=== PATIENT | male | born 1945 | race Hispanic/Latino ===

== ENCOUNTER 2018-04-29 13:59 | Emergency (ER) | payer OTHER ==
[2018-04-29] MEDS ORDERED: BUPIVACAINE 0.5% PF 10 ML VIAL ONE (14:24)
--- NOTE | 2018-04-29 15:13 | EDPHYS ---
Physician Documentation [facility] Name: Efren Bullock Age: 72 yrs Sex: Male : 1945 Arrival Date: 04/29/2018 Time: 14:02 Bed 12 Private MD: Jose Gerber ED Physician Hamzah Melendez HPI: 04/29 14:18 This 72 yrs old Male presents to ER via Ambulatory with complaints of jmm Laceration - Finger. 14:18 The patient or guardian reports injury, a laceration. Onset: The symptoms/episode jmm began/occurred acutely. Modifying factors: The symptoms are alleviated by nothing, the symptoms are aggravated by nothing. Associated signs and symptoms: Pertinent negatives: cyanosis distally, fever. This is a 72 year old male with a history of DM that presents to the ED with complaints of laceration to the tip of his right 4th finger with a machete while he was cleaning it. Patient denies other injury. UTD on tetanus immunization. . Historical: - Allergies: 14:09 No Known Allergies; sv - PSHx: 14:09 kidney cancer; Cholecystectomy; sv - Immunization history:: Flu vaccine is up to date. - Social history:: Smoking status: Patient/guardian denies using tobacco. - Ebola Screening: : No symptoms or risks identified at this time. ROS: 14:18 Constitutional: Negative for fever, chills, and weight loss. jmm 14:18 : Positive for laceration. 14:18 MS/extremity: Positive for laceration. 14:18 Skin: Positive for laceration(s). 14:18 All other systems are negative. Exam: 14:18 Constitutional: This is a well developed, well nourished patient who is awake, alert, jmm and in no acute distress. Head/Face: atraumatic. Eyes: EOMI, no conjunctival erythema appreciated ENT: Moist Mucus Membranes Neck: Trachea midline, Supple Chest/axilla: Normal chest wall appearance and motion. Cardiovascular: Regular rate and rhythm. No edema appreciated Respiratory: Normal respirations, no respiratory distress appreciated Abdomen/GI: Non distended, soft Back: Normal ROM 14:18 Musculoskeletal/extremity: FROM noted to the right finger against resistance. < 2 sec dist cap refill, NVI. 14:18 Skin: partial depadding noted to the right 4th finger tip. 14:18 Neuro: Orientation: is normal, Mentation: is normal, Memory: is normal, Gait: is steady. 14:18 Psych: Behavior/mood is pleasant, cooperative. Vital Signs: 14:09 BP 158 / 91; Pulse 75; Resp 16; Temp 98.8; Pulse Ox 99% ; Weight 77.11 kg; Height 5 ft. sv 10 in. (177.80 cm); 14:09 Body Mass Index 24.39 (77.11 kg, 177.80 cm) sv Laceration: 15:20 Wound Repair of 3cm ( 1.2in ) subcutaneous laceration to palmar aspect of distal jmm phalanx of right ring finger. Distal neuro/vascular/tendon intact. Anesthesia: Digital block administered with 3 mls of 0.5% marcaine. Wound prep: Moderate cleansing with betadine by me. Skin closed with 6 5-0 Prolene using simple sutures and sterile technique. Dressed with non-adherent dressing. Patient tolerated well. MDM: 14:18 Patient medically screened. ange 15:11 Data reviewed: vital signs, nurses notes. Counseling: I had a detailed discussion with leonardo the patient and/or guardian regarding: the historical points, exam findings, and any diagnostic results supporting the discharge/admit diagnosis, the need for outpatient follow up, to return to the emergency department if symptoms worsen or persist or if there are any questions or concerns that arise at home. Administered Medications: No medications were administered Disposition: 04/29/18 15:12 Discharged to Home. Impression: finger laceration. - Condition is Stable. - Discharge Instructions: Laceration Care, Adult. - Prescriptions for Cephalexin 500 mg Oral Capsule - take 1 capsule by ORAL route every 6 hours for 10 days; 40 capsule. - Medication Reconciliation Form, Thank You Letter, Antibiotic Education, Prescription Opioid Use form. - Follow up: Alejadnro Benito MD; When: 2 - 3 days; Reason: Recheck today's complaints, Continuance of care, Re-evaluation by your physician. Addendum: 05/01/2018 13:27 Co-signature as Attending Physician, Hamzah Melendez MD I agree with the assessment and k dr plan of care. Signatures: Celina Friedman RN RN sv Rittger, Kevin, MD MD kdr Mickail, Joel, PA PA jm Torie Cummings, RN RN Zully Olivares RN RN kr2 Corrections: (The following items were deleted from the chart) 04/29 15:25 15:12 04/29/2018 15:12 Discharged to Home. Impression: finger laceration. Condition is hb Stable. Forms are Medication Reconciliation Form, Thank You Letter, Antibiotic Education, Prescription Opioid Use. Follow up: Alejandro Benito; When: 2 - 3 days; Reason: Recheck today's complaints, Continuance of care, Re-evaluation by your physician. [facility] [place] 22:12 22:09 Wound Repair of 3cm ( 1.2in ) subcutaneous laceration to palmar aspect of distal jmm phalanx of right ring finger. Distal neuro/vascular/tendon intact. Anesthesia: Digital block administered with 3 mls of 0.5% marcaine. Wound prep: Moderate cleansing with betadine by me. Skin closed with 6 5-0 Prolene using simple sutures and sterile technique. Dressed with non-adherent dressing. Patient tolerated well. leonardo
--- NOTE | 2018-04-29 15:13 | ER ---
Nurse's Notes [facility] Name: Efren Bullock Age: 72 yrs Sex: Male : 1945 Arrival Date: 04/29/2018 Time: 14:02 Bed 12 Private MD: Jose Gerber Diagnosis: finger laceration Presentation: 04/29 14:08 Presenting complaint: Patient states: right 4th digit laceration that happened today. sv Transition of care: patient was not received from another setting of care. Complicating Factors: There are no complicating factors for this patient. Onset of symptoms was April 29, 2018. Care prior to arrival: None. 14:08 Method Of Arrival: Ambulatory sv 14:08 Acuity: AMARJIT 3 sv 14:50 Risk Assessment: Do you want to hurt yourself or someone else? Patient reports no kr2 desire to harm self or others. Initial Sepsis Screen: Does the patient meet any 2 criteria? No. Patient's initial sepsis screen is negative. Does the patient have a suspected source of infection? Yes: Skin breakdown/wound. Historical: - Allergies: 14:09 No Known Allergies; sv - PSHx: 14:09 kidney cancer; Cholecystectomy; sv - Immunization history:: Flu vaccine is up to date. - Social history:: Smoking status: Patient/guardian denies using tobacco. - Ebola Screening: : No symptoms or risks identified at this time. Screenin:50 Abuse screen: Denies threats or abuse. Denies injuries from another. Nutritional kr2 screening: No deficits noted. Tuberculosis screening: No symptoms or risk factors identified. Fall Risk None identified. Assessment: 14:15 General: Appears in no apparent distress. uncomfortable, well groomed, well developed, kr2 Behavior is calm, cooperative, appropriate for age. Pain: Complains of pain in ring finger of right hand Pain does not radiate. Pain currently is 5 out of 10 on a pain scale. Quality of pain is described as burning, aching, tender, Is continuous. Neuro: Level of Consciousness is awake, alert, obeys commands, Oriented to person, place, time, situation. Cardiovascular: Capillary refill < 3 seconds in bilateral fingers Patient's skin is warm and dry. Respiratory: Airway is patent Respiratory effort is even, unlabored, Respiratory pattern is regular, symmetrical. Derm: Skin is healthy with good turgor. Musculoskeletal: Circulation, motion, and sensation intact. Injury Description: Laceration sustained to ring finger of right hand is covered with bandage, per provider Partha, he will administer Marcaine to affected finger before removing dressing. 14:57 Injury Description: Laceration sustained to palmar aspect of distal phalanx of right kr2 ring finger was sustained 2-4 hours ago. is bleeding a small amount. Vital Signs: 14:09 BP 158 / 91; Pulse 75; Resp 16; Temp 98.8; Pulse Ox 99% ; Weight 77.11 kg; Height 5 ft. sv 10 in. (177.80 cm); 14:09 Body Mass Index 24.39 (77.11 kg, 177.80 cm) sv ED Course: 14:02 Patient arrived in ED. as 14:03 Jose Gerber MD is Private Physician. as 14:08 Triage completed. sv 14:11 [facility] 14:11 Hamzah Melendez MD is Attending Physician. [facility] 14:15 Arm band placed on left wrist. kr2 14:15 Patient has correct armband on for positive identification. Bed in low position. Call kr2 light in reach. Side rails up X 1. Adult w/ patient. Pulse ox on. NIBP on. Door closed. Head of bed elevated. 15:12 Alejandro Benito MD is Referral Physician. [facility] 15:24 Assist provider with laceration repair on palmar aspect of distal phalanx of right ring hb finger that was between 2.6 to 7.5 cm using sutures. Set up tray. Performed by Hima PLAZA Patient tolerated well. 15:25 Patient did not have IV access during this emergency room visit. hb Administered Medications: No medications were administered Outcome: 15:12 Discharge ordered by . [facility] 15:24 Discharged to home ambulatory. hb 15:24 Condition: stable 15:24 Discharge instructions given to patient, family, Instructed on discharge instructions, follow up and referral plans. medication usage, Demonstrated understanding of instructions, follow-up care, medications, wound care, Prescriptions given X 1. 15:25 Patient left the ED. hb Signatures: Celina Friedman RN RN Hima Coleman PA PA jmm Martinez, Amelia as Baxter, Heather, RN RN hb Zully Olivares, RN RN kr2
== END 2018-04-29 15:25 | disposition home or self-care (01) ==
LOC: ER 13:59
PROC: 0JQJ0ZZ Repair Right Hand Subcutaneous Tissue and Fascia, Open Approach (ICD-10-PCS; principal; 2018-04-29)
DX: S61.214A Laceration without foreign body of right ring finger without damage to nail, initial encounter (principal); W26.0XXA Contact with knife, initial encounter; Y93.89 Activity, other specified; Y92.009 Unspecified place in unspecified non-institutional (private) residence as the place of occurrence of the external cause; Z85.528 Personal history of other malignant neoplasm of kidney
CPT/HCPCS: 99283

== ENCOUNTER 2018-05-04 07:58 | Day surgery (SDC) | payer OTHER ==
--- NOTE | 2018-05-03 17:09 | RAD REPORT ---
EXAM DESCRIPTION: RAD - Chest Pa And Lat (2 Views) - 05/03/2018 4:48 pm CLINICAL HISTORY: Preop chest, skin graft right second digit pending COMPARISON: November 2008 TECHNIQUE: PA and lateral views of the chest were obtained. FINDINGS: The lungs are clear. Mediastinal and hilar regions within normal limits and stable. Heart size is normal and central vasculature is within normal limits. No pleural effusion or pneumothorax seen. No acute bony finding noted. No aortic abnormality. IMPRESSION: No acute cardiopulmonary process. No significant interval change.
[2018-05-03 17:25] LABS: Urine Appearance CLEAR; Urine Bilirubin NEGATIVE (NEG); Urine Blood NEGATIVE (NEG); Urine Color YELLOW; Urine Glucose 3+ (NEG); Urine Protein NEGATIVE (NEG); Urine Urobilinogen 0.2 mg/dL (0.2-1.0); Urine pH 5.5 (5.0-7.0)
[2018-05-03 17:27] LABS: Urine Microscopic Reflex NO UMIC
[2018-05-03 17:29] LABS: Absolute Lymphocytes (CBC) 1.6 K/uL (0.7-4.9); Absolute Monocytes 0.6 K/uL (0.1-1.3); Absolute Neutrophil 4.1 K/uL (1.8-8.0); Hematocrit 38.9 % (39.6-49.0); Lymphocytes % 24.2 % (15.3-44.8); MCH 29.7 pg (27.0-35.0); MCV 88.1 fL (80-100); MPV 9.5 fL (7.6-11.3); Monocytes % 8.6 % (3.3-12.3); RBC Red Blood Cell Count 4.41 M/uL (4.33-5.43)
--- NOTE | 2018-05-03 19:37 | EKG ---
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
[2018-05-04] MEDS ORDERED: NA CHLORIDE 0.9% 1,000 ML ONE (08:25)
[2018-05-04] MEDS ORDERED: CEFAZOLIN/SWI 1gm 1 GM/10 ML SYR ONE (08:25)
[2018-05-04] MEDS ORDERED: MINERAL OIL, LITE 10 ML VIAL ONE (08:36)
[2018-05-04] MEDS ORDERED: PROPOFOL 200 MG/20 ML VIAL IV ONE (08:47)
[2018-05-04] MEDS ORDERED: FENTANYL CITR 100 MCG/2 ML ONE (08:47)
[2018-05-04] MEDS ORDERED: MIDAZOLAM HCL 2 MG/2 ML INJ ONE (08:48)
[2018-05-04] MEDS ORDERED: LIDOCAINE 2% MPF 5 ML VIAL ONE (08:48)
[2018-05-04] MEDS ORDERED: ONDANSETRON HCL 40 MG/20 ML VIAL ONE (08:48)
[2018-05-04] MEDS ORDERED: ROCURONIUM 50 MG/5 ML VIAL IV ONE (09:15)
[2018-05-04] MEDS ORDERED: GLYCOPYRROLATE 0.2 MG/ML SYR ONE ×2 (09:46)
--- NOTE | 2018-05-05 09:10 | OP ---
Surgeon: Alejandro Benito MD Manufacturing Plant Manager: Sharath. Preoperative Diagnosis: Open wound of the right ring finger. Postoperative Diagnosis: Open wound of the right ring finger. Procedure Performed: Debridement of skin and subcutaneous tissue, V-Y flap closure. Anesthesia: General. Procedure In Detail: After satisfactory induction of general anesthesia, right hand was prepped with Betadine scrub, Betadine paint, dry sterile drapes applied in usual manner. The arm was elevated, e xsanguinated with an Esmarch, tourniquet inflated to 250 mmHg. Hand placed on the [place] table. Diane tures removed. The closed area was necrosing and it was removed after sutures removed of Prolene. V -Y flap was outlined proximally. This was done on the ulnar aspect and incised with 15-blade. Flap was advanced. The wound was irrigated before advancing it, and was closed with 4-0 Prolene simple diane tures. Dressed with Xeroform, 2 inch Paula. The patient tolerated the procedure well and returned t o Recovery. SILVIO/LYNETTE Voice ID: [id number] Report ID: [id number]
== END 2018-05-04 11:10 | disposition home or self-care (01) ==
LOC: OR 07:58
PROVIDERS: ATTEND Specialist
PROC: 0HXFXZZ Transfer Right Hand Skin, External Approach (ICD-10-PCS; principal; 2018-05-04 09:00)
DX: S61.204A Unspecified open wound of right ring finger without damage to nail, initial encounter (principal); E11.9 Type 2 diabetes mellitus without complications; I10 Essential (primary) hypertension
CPT/HCPCS: 14040; 36415; 71046; 80048; 81003; 82962 ×2; 85025; 88304; 93005; J0690; J2250; J2405; J3010; J7030

== ENCOUNTER 2020-09-16 16:34 | Emergency (ER) | payer OTHER ==
--- OUTSIDE RECORDS SUMMARY | 2020-09-16 16:38 | XMS REPORT | Continuity of Care Document ---
:1945 Author Organization [facility] t Address [address] [place] [address] Care Team Providers Name Role Phone Magen De Leon MD Attending Clinician Payers Payer Name Policy Type Policy Number Effective Date Expiration Date S ori AETNA [id number] 2019 [place] MEDICAREAETNA 00:00:00 [facility] MEDICARE HMO/PPO [id number] 0-PresentHMO Problems This patient has no known problems. Allergies, Adverse Reactions, Alerts Allergy Allergy Status Severity Reaction(s) Onset Inactive Treating Comm ents Source Name Type Date Date Clinician No Known DA Active U [facility] 11-20 [place] [facility] 00:[facility]: [facility] 00 are [facility]ly [facility] Social History Social Habit Start Date Stop Date Quantity Comments Source Sex Assigned At Pravin ston [facility] Medications This patient has no known medications. Procedures Procedure Date / Time Performed Performing Clinician [facility] e SURGICAL PATHOLOGY 2019-10-07 16:17:00 Irineo De Leon on [facility] REQUEST Plan of Care Planned Activity Planned Date Details Comments Source Future Scheduled 2020-02-18 INFLUENZA VACCINE Raulito harrington [facility] Test 00:00:00 [code = INFLUENZA VACCINE] Future Scheduled 2011-11-20 65+ PNEUMOCOCCAL [place] [facility] 00:00:00 VACCINE (1 of 1 - PPSV23) [code = 65+ PNEUMOCOCCAL VACCINE (1 of 1 - PPSV23)] Future Scheduled 1996 COLONOSCOPY SCREENING [place] [facility] 00:00:00 [code = COLONOSCOPY SCREENING] Future Scheduled 1996 SHINGLES VACCINES (#1) [place] [facility] 00:00:00 [code = SHINGLES VACCINES (#1)] Future Scheduled 1964 Hepatitis C screening [place] [facility] 00:00:00 (procedure) [code = 359138380] Future Scheduled 1962 COVID-19 VACCINE (1 of [place] [facility] 00:00:00 2) [code = COVID-19 VACCINE (1 of 2)] Future Scheduled 1956 DIABETES: RETINAL EYE [place] [facility] 00:00:00 EXAM [code = DIABETES: RETINAL EYE EXAM] Future Scheduled 1956 DIABETIC FOOT EXAM [place] [facility] 00:00:00 [code = DIABETIC FOOT EXAM] Future Scheduled 1956 URINE MICROALBUMIN [place] [facility] 00:00:00 [code = URINE MICROALBUMIN] Encounters Start End Encounter Admission Attending Care Care Encounter Source Date/Time Date/Time Type Type Clinicians Facility Department ID 2019-10-07 2019-10-07 Outpatient IRINEO DE LEON [facility] [id number] [place] 00:00:00 00:00:[address] Results Test Description Test Time Test Comments Results Result [facility] e Comments SURGICAL SPECIMENS 2020-01-05 17:24:00 --------RUN DATE: 01/05/20 [facility] - LAB PAGE 1 RUN TIME: 6284 Specimen Inquiry RUN USER: INTERFACE --------PATIENT: ANA LUISA GOMEZ LOC: [place]anna5N POD B U #: [id number] AGE/SX: 74/M ROOM: [facility] RE01/03/20REG DR: Clark Daugherty MD : 47 BED: 1 DIS: 01/05/20 STATUS: DIS IN TLOC: -------- SPEC #: [id number] RECD: 01/03/20 STATUS: NENA REQ #: [id number] NATANAEL: 01/03/20-[address]: Clark Daugherty MD ENTERED: 01/03/20 SP TYPE: SURG OTHR DR: Irineo De Leon MD, Enrique A III MDORDERED: PATHGM5, PATH SPEC, H E STAIN HISTOLOGY: TISSUE ID BLK PCS LAINA LEV / PROCEDURE DISPOSITION ____ ___ ___ ___ ___ COLON SEG NTUMR A 16 1 TISSUES: A. 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 It consists of a right hemicolectomy and a separate segment of adipose tissue consistent with omentum (15.0 x 7.1 x 1.9 cm). The colon has the following components: ileum, 5.5 cm length, 3.5 cm circumference; cecum/ascending colon, 11 cm length, 8.8 cm maximum circumference; appendix, 9 cm length, 0.5 cm diameter. The colon serosa is warren-pink and smooth. Within the colon, at the ileocecal valve is a polyp (2.4 x 1.2 x 1.1 cm) which is at 5.2 cm from the proximal margin and 9.2 cm from distal margin. Involvement of underlying wall is not evident by gross exam. The remainder of ileum and colon mucosa is normally folded; there are no additional lesions. Dissection of adipose tissue reveals multiple possible lymph nodes which range from 0.2 to 1.0 cm in greatest dimension. Cross sections of adipose tissue consistent with omentum reveal unremarkable, lobulated adipose tissue with no mass lesions. Super[employer] sections, including all possible lymph nodes, are submitted in A1-A16. INK CODE: blue-serosa opposite polyp CONTINUED ON NEXT PAGE --------RUN DATE: 01/05/20 [facility] - LAB PAGE 2 RUN TIME: 1724 Specimen Inquiry RUN USER: INTERFACE --------SPEC #: [id number] PATIENT: ANA LUISA GOMEZ #[id number] (Continued) GROSS DESCRIPTION (Continued) SECTION CODE: A1, proximal margin en face; A2, distal margin en face; A3, appendix, including entire tip; A4-A8, entire polyp; A9, ileocecal valve adjacent to polyp; A10-A11, multiple entire possible lymph nodes in area of ileocecal valve; A12-A14, multiple entire possible lymph nodes, colon mesentery; A15-A16, omentum. / Signed SIGNATURE ON FILE Dwaine Estrada MD 01/05/20 1724 -------- END OF REPORT FERRITIN 2020-01-05 11:38:00 Test Item Value Reference Range Interpretation Comme nts FERRITIN (test code = ERWIN) 110 ng/mL 30-400 N [id number] 09:09:00 Test Item Value Reference Range Interpretation Comments GLUBED (test code = GLUBED) 228 MG/DL 70-105 H BASIC METABOLIC [id number] 07:29:00 Test Item Value Reference Range Interpretation Comments SODIUM (test code = 134 MMOL/L 136-143 L NA) POTASSIUM (test code 4.8 MMOL/L 3.5-5.1 N = K) CHLORIDE (test code = 102 MMOL/L 98-107 N CL) CARBON DIOXIDE (test 22 mmol/L 24-31 L code = CO2) GLUCOSE (test code = 161 mg/dL 70-104 H GLU) BLOOD UREA NITROGEN 14.7 MG/DL 7.0-21.0 N (test code = BUN) GLOMERULAR FILTRATION 53 >60 L The es timated RATE (test code = glomerular filtration GFR) rate is compute d usingpatient ra ce, age (>18), sex, and serum creatinine. If anyof the needed data elements are mi ssing the Laboratory cannot compute an dev mation of the glomerul ar filtration rate . CREATININE (test code 1.4 mg/dL 0.8-1.5 N = CREAT) CALCIUM (test code = 8.2 mg/dL 8.8-10.2 L CA) [id number] 07:29:00 Test Item Value Reference Range Interpretation Comments MAGNESIUM (test code = MAG) 1.9 mg/dL 1.4-2.6 N FE W/TOTAL IRON BINDING [id number] 06:56:00 Test Item Value Reference Range Interpretation Comments IRON (test code = IRON) 19 mcg/dL 53-167 L TOTAL IRON BINDING CAPACITY (test 273 mcg/dL 250-450 N code = TIBC) IRON SATURATION (test code = 7 % 20-50 L FESAT) CBC W/AUTO [id number] 06:32:00 Test Item Value Reference Range Interpretation Comments WHITE BLOOD CELL (test code = 8.1 x10 3/uL 4.8-10.8 N WBC) RED BLOOD CELL (test code = 3.52 x10 6/uL 4.70-6.10 L RBC) HEMOGLOBIN (test code = HGB) 10.0 g/dL 14.5-20 L HEMATOCRIT (test code = HCT) 31.8 % 42.0-52.0 L MEAN CELL VOLUME (test code = 90.3 fL 80.0-94.0 N MCV) MEAN CELL HGB (test code = MCH) 28.4 pg 27-31 N MEAN CELL HGB CONCENTRATION 31.4 G/DL 33-36.5 L (test code = MCHC) RED CELL DISTRIBUTION WIDTH 15.2 % 12.9-16.9 N (test code = RDW) PLATELET COUNT (test code = 209 150-440 N PLT) MEAN PLATELET VOLUME (test code 10.9 fL 8.9-12.4 N = MPV) NEUTROPHIL % (test code = NT%) 70.8 % 42.2-75.2 N LYMPHOCYTE % (test code = LY%) 15.2 % 20.5-51.1 L MONOCYTE % (test code = MO%) 9.4 % 1.7-9.3 H EOSINOPHIL % (test code = EO%) 4.0 % 0.0-7.0 N BASOPHIL % (test code = BA%) 0.4 % 0-2.5 N NEUTROPHIL # (test code = NT#) 5.71 x10 3/uL 1.80-7.70 N LYMPHOCYTE # (test code = LY#) 1.23 x10 3/uL 1.00-4.80 N MONOCYTE # (test code = MO#) 0.76 x10 3/uL 0.00-0.80 N EOSINOPHIL # (test code = EO#) 0.32 x10 3/uL 0.00-0.45 N BASOPHIL # (test code = BA#) 0.03 x10 3/uL 0.0-0.20 N [id number] 21:02:00 Test Item Value Reference Range Interpretation Comments GLUBED (test code = GLUBED) 184 MG/DL 70-105 H [id number] 16:42:00 Test Item Value Reference Range Interpretation Comments GLUBED (test code = GLUBED) 131 MG/DL 70-105 H [id number] 11:23:00 Test Item Value Reference Range Interpretation Comments GLUBED (test code = GLUBED) 148 MG/DL 70-105 H [id number] 08:11:00 Test Item Value Reference Range Interpretation Comments GLUBED (test code = GLUBED) 171 MG/DL 70-105 H BASIC METABOLIC [id number] 07:41:00 Test Item Value Reference Range Interpretation Comments SODIUM (test code = 133 MMOL/L 136-143 L NA) POTASSIUM (test code 4.5 MMOL/L 3.5-5.1 N = K) CHLORIDE (test code = 100 MMOL/L 98-107 N CL) CARBON DIOXIDE (test 24 mmol/L 24-31 N code = CO2) GLUCOSE (test code = 185 mg/dL 70-104 H GLU) BLOOD UREA NITROGEN 14.1 MG/DL 7.0-21.0 N (test code = BUN) GLOMERULAR FILTRATION 53 >60 L The es timated RATE (test code = glomerular filtration GFR) rate is compute d usingpatient ra ce, age (>18), sex, and serum creatinine. If anyof the needed data elements are mi ssing the Laboratory cannot compute an dev mation of the glomerul ar filtration rate . CREATININE (test code 1.4 mg/dL 0.8-1.5 N = CREAT) CALCIUM (test code = 8.5 mg/dL 8.8-10.2 L CA) [id number] 07:41:00 Test Item Value Reference Range Interpretation Comments MAGNESIUM (test code = MAG) 1.7 mg/dL 1.4-2.6 N CBC W/AUTO [id number] 07:07:00 Test Item Value Reference Range Interpretation Comments WHITE BLOOD CELL (test code = 12.6 x10 3/uL 4.8-10.8 H WBC) RED BLOOD CELL (test code = 3.82 x10 6/uL 4.70-6.10 L RBC) HEMOGLOBIN (test code = HGB) 10.9 g/dL 14.5-20 L HEMATOCRIT (test code = HCT) 33.8 % 42.0-52.0 L MEAN CELL VOLUME (test code = 88.5 fL 80.0-94.0 N MCV) MEAN CELL HGB (test code = 28.5 pg 27-31 N MCH) MEAN CELL HGB CONCENTRATION 32.2 G/DL 33-36.5 L (test code = MCHC) RED CELL DISTRIBUTION WIDTH 14.9 % 12.9-16.9 N (test code = RDW) PLATELET COUNT (test code = 214 150-440 N PLT) MEAN PLATELET VOLUME (test 11.0 fL 8.9-12.4 N code = MPV) NEUTROPHIL % (test code = NT%) 81.6 % 42.2-75.2 H LYMPHOCYTE % (test code = LY%) 10.7 % 20.5-51.1 L MONOCYTE % (test code = MO%) 6.9 % 1.7-9.3 N EOSINOPHIL % (test code = EO%) 0.1 % 0.0-7.0 N BASOPHIL % (test code = BA%) 0.2 % 0-2.5 N NEUTROPHIL # (test code = NT#) 10.27 x10 3/uL 1.80-7.70 H LYMPHOCYTE # (test code = LY#) 1.34 x10 3/uL 1.00-4.80 N MONOCYTE # (test code = MO#) 0.87 x10 3/uL 0.00-0.80 H EOSINOPHIL # (test code = EO#) 0.01 x10 3/uL 0.00-0.45 N BASOPHIL # (test code = BA#) 0.02 x10 3/uL 0.0-0.20 N [id number] 20:31:00 Test Item Value Reference Range Interpretation Comments GLUBED (test code = GLUBED) 211 MG/DL 70-105 H [id number] 17:36:00 Test Item Value Reference Range Interpretation Comments GLUBED (test code = GLUBED) 162 MG/DL 70-105 H Novel Coronavirus 2019 [id number] 12:01:00 Test Item Value Reference Range Interpretation Comments Novel Coronavirus 2019 Inhouse (test Negative Negative code = COVNONPUI) Testing Criteria: Preprocedure ScreeningBASIC METABOLIC [id number] 11:26:00 Test Item Value Reference Range Interpretation Comments SODIUM (test code = 141 MMOL/L 136-143 N NA) POTASSIUM (test code 4.6 MMOL/L 3.5-5.1 N = K) CHLORIDE (test code = 105 MMOL/L 98-107 N CL) CARBON DIOXIDE (test 25 mmol/L 24-31 N code = CO2) GLUCOSE (test code = 126 mg/dL 70-104 H GLU) BLOOD UREA NITROGEN 16.0 MG/DL 7.0-21.0 N (test code = BUN) GLOMERULAR FILTRATION 58 >60 L The es timated RATE (test code = glomerular filtration GFR) rate is compute d usingpatient ra ce, age (>18), sex, and serum creatinine. If anyof the needed data elements are mi ssing the Laboratory cannot compute an dev mation of the glomerul ar filtration rate . CREATININE (test code 1.3 mg/dL 0.8-1.5 N = CREAT) CALCIUM (test code = 9.2 mg/dL 8.8-10.2 N CA) CBC W/AUTO [id number] 10:41:00 Test Item Value Reference Range Interpretation Comments WHITE BLOOD CELL (test code = 7.3 x10 3/uL 4.8-10.8 N WBC) RED BLOOD CELL (test code = 4.57 x10 6/uL 4.70-6.10 L RBC) HEMOGLOBIN (test code = HGB) 12.9 g/dL 14.5-20 L HEMATOCRIT (test code = HCT) 40.2 % 42.0-52.0 L MEAN CELL VOLUME (test code = 88.0 fL 80.0-94.0 N MCV) MEAN CELL HGB (test code = MCH) 28.2 pg 27-31 N MEAN CELL HGB CONCENTRATION 32.1 G/DL 33-36.5 L (test code = MCHC) RED CELL DISTRIBUTION WIDTH 14.9 % 12.9-16.9 N (test code = RDW) PLATELET COUNT (test code = 232 150-440 N PLT) MEAN PLATELET VOLUME (test code 10.9 fL 8.9-12.4 N = MPV) NEUTROPHIL % (test code = NT%) 64.8 % 42.2-75.2 N LYMPHOCYTE % (test code = LY%) 23.3 % 20.5-51.1 N MONOCYTE % (test code = MO%) 7.4 % 1.7-9.3 N EOSINOPHIL % (test code = EO%) 3.7 % 0.0-7.0 N BASOPHIL % (test code = BA%) 0.7 % 0-2.5 N NEUTROPHIL # (test code = NT#) 4.75 x10 3/uL 1.80-7.70 N LYMPHOCYTE # (test code = LY#) 1.71 x10 3/uL 1.00-4.80 N MONOCYTE # (test code = MO#) 0.54 x10 3/uL 0.00-0.80 N EOSINOPHIL # (test code = EO#) 0.27 x10 3/uL 0.00-0.45 N BASOPHIL # (test code = BA#) 0.05 x10 3/uL 0.0-0.20 N SURGICAL [id number] 14:39:00 RUN DATE: 11/25/19 [facility] - LAB PAGE 1 RUN TIME: 1439 Specimen Inquiry RUN USER: INTERFACE PATIENT: ANA LUISA GOMEZ LOC: [place] U #: [id number] AGE/SX: 74/M ROOM: RE11/23/[facility] DR: Irineo De Leon MD : 46 BED: DIS: STATUS: [facility] TLOC: SPEC #: [id number] RECD: 11/23/19 STATUS: NENA REQ #: [id number] NATANAEL: 11/23/[address] [facility] [address]: Irineo De Leon MD ENTERED: 11/23/193 SP TYPE: SURG OTHR DR: DOES_NOT KNOW ORDERED: PATHGM4/2, PATH SPEC, H E STAIN/2 HISTOLOGY: TISSUE ID BLK PCS LAINA LEV / PROCEDURE DISPOSITION ____ ___ ___ ___ ___ ILEOCECAL VALVEA 1 3 1 RECTAL BX B 1 3 1 TISSUES: A. ILEOCECAL VALVE - ILEOCECAL VALVE POLYP B. RECTAL BX - RECTAL POLYP CLINICAL HISTORY RECTAL POLYPS COMMENT Deeper recut sections of specimen B are identified. No high-grade dysplasia or invasive carcinoma is identified in the sections examined. The margins cannot be evaluated with certainty due to the fragmented nature of the specimen. Clinical correlation is recommended. IC:YAngelia FINAL DIAGNOSIS A-ILEOCECAL VALVE POLYP, BIOPSY: - Tubular adenoma. B-RECTAL POLYP, TRANSANAL EXCISION: - Extensively cauterized fragments of colonic mucosa with tubular adenoma. - Submucosal tissue including an area consistent with muscularis propria is identified. - Black pigment consistent with prior tattoo site.- See comment. GROSS DESCRIPTION A-ILEOCECAL VALVE POLYP: A minute possible tissue fragment which measures less than 1 mm. Separate fragments of debris/possible fecal material which measure 3 mm in aggregate are noted. The specimen is submitted in its entirety in a single cassette. B- RECTAL POLYP: Three distorted fragments of warren tissue which measure 3 mm, 7 mm, CONTINUED ON NEXT PAGE RUN DATE: 11/25/19 [facility] - LAB PAGE 2 RUN TIME: 1439 Specimen Inquiry RUN USER: INTERFACE SPEC #: [id number] PATIENT: ANA LUISA GOMEZ #[id number] (Continued) GROSS DESCRIPTION (Continued) and 7 mm in maximum dimension. Apparent cautery artifact is noted. Specimen is submitted in its entirety in a single cassette. RAB/th MICROSCOPIC DESCRIPTION Microscopic performed. -------- ---- Signed SIGNATURE ON FILE Ashley Duran MD 11/25/19 1439 END OF REPORT [id number] 17:46:00 Test Item Value Reference Range Interpretation Comments GLUBED (test code = GLUBED) 180 MG/DL 70-105 H [id number] 16:38:00 Test Item Value Reference Range Interpretation Comments GLUBED (test code = GLUBED) 183 MG/DL 70-105 H Novel Coronavirus 2018 [id number] 16:09:00 Test Item Value Reference Range Interpretation Comments Novel Coronavirus Test not Negative Previously 2019 Inhouse (test performed reported result: code = [id number]) Negative E dited by: CINTHYA harrington 11/23/19:1609~~ Corrected Repor t ~~Reason (required):DUPL ICA TE REQUEST Novel Coronavirus 2018 [id number] 12:20:00 Test Item Value Reference Range Interpretation Comments Novel Coronavirus Negative Negative Positive r esults are 2019 Inhouse (test indicativ e of the presence code = [id number]) ofSARS-CoV -2 RNA, clinical correlation wit h patient historyand othe r diagnostic info rmation is necessary to determinepatien t infection status. Positiv e results do not rule out bacterial infection or co -infection with other viru ses. Negative result s do not preclude SARS-C oV-2 infection andsh ould not be used as the karol e basis for patient managementdecis ions. Negative result s must be combined with otherclinical observations, p atient history, and epidemiological information . Detection of SARS-CoV-2 RNA may be affe cted bysample collec tion methods, storag e conditions, and /or stageof infection. Carey l RNA mutations, vacc inations, antiviraltherap eutics, antibiotics, chemotherapeuti c orimmunosuppres debby drugs have not been e valuated for effectson d etection. Results are for the identification of SARS-CoV-2 RNA usingthe Grider M2000 Sy stem under the FDA Emergen cy UseAuthorizatio n. The testing is perf ormed by personneltrarhianna d in the procedures for the Grider M2000 molecular diagnostic SARS-CoV-2 assa y in vitro.Positive results are indicative of t he presence eaZGPB-WbE-2 RN A, clinical correlation wit h patient historyand othe r diagnostic info rmation is necessary to determinepatien t infection status. Positiv e results do not rule out bacterial infection or co -infection with other viru ses. Negative result s do not preclude SARS-C oV-2 infection andsh ould not be used as the karol e basis for patient managementdecis ions. Negative result s must be combined with otherclinical observations, p atient history, and epidemiological information . Detection of SARS-CoV-2 RNA may be affe cted bysample collec tion methods, storag e conditions, and /or stageof infection. Vi ral RNA mutations, vacc inations, antiviraltherap eutics, antibiotics, chemotherapeuti c orimmunosuppres debby drugs have not been e valuated for effectson d etection. Results are for the identification of SARS-CoV-2 RNA usingthe scrible M2000 Sy stem under the FDA Emergen cy EdiAuthoriyariel n. The testing is perf ormed by personneltraine d in the procedures for the Grider M2000 molecular diagnostic SARS-CoV-2 assa y in vitro. Coronavirus 2019 nCoV [id number] 11:34:00 Test Item Value Reference Range Interpretation Comments Coronavirus 2019 nCoV Bedside (test Negative NEGATIVE code = [id number]) BASIC METABOLIC [id number] 15:47:00 Test Item Value Reference Range Interpretation Comments SODIUM (test code = 134 MMOL/L 136-143 L NA) POTASSIUM (test code 4.8 MMOL/L 3.5-5.1 N = K) CHLORIDE (test code = 99 MMOL/L 98-107 N CL) CARBON DIOXIDE (test 25 mmol/L 24-31 N code = CO2) GLUCOSE (test code = 179 mg/dL 70-104 H GLU) BLOOD UREA NITROGEN 23.4 MG/DL 7.0-21.0 H (test code = BUN) GLOMERULAR FILTRATION 42 >60 L The es timated RATE (test code = glomerular filtration GFR) rate is compute d usingpatient ra ce, age (>18), sex, and serum creatinine. If anyof the needed data elements are mi ssing the Laboratory cannot compute an dev mation of the glomerul ar filtration rate . CREATININE (test code 1.7 mg/dL 0.8-1.5 H = CREAT) CALCIUM (test code = 9.4 mg/dL 8.8-10.2 N CA) CBC W/AUTO [id number] 15:29:00 Test Item Value Reference Range Interpretation Comments WHITE BLOOD CELL (test code = 5.8 x10 3/uL 4.8-10.8 N WBC) RED BLOOD CELL (test code = 4.41 x10 6/uL 4.70-6.10 L RBC) HEMOGLOBIN (test code = HGB) 12.5 g/dL 14.5-20 L HEMATOCRIT (test code = HCT) 38.4 % 42.0-52.0 L MEAN CELL VOLUME (test code = 87.1 fL 80.0-94.0 N MCV) MEAN CELL HGB (test code = MCH) 28.3 pg 27-31 N MEAN CELL HGB CONCENTRATION 32.6 G/DL 33-36.5 L (test code = MCHC) RED CELL DISTRIBUTION WIDTH 13.8 % 12.9-16.9 N (test code = RDW) PLATELET COUNT (test code = 266 150-440 N PLT) MEAN PLATELET VOLUME (test code 11.3 fL 8.9-12.4 N = MPV) NEUTROPHIL % (test code = NT%) 61.6 % 42.2-75.2 N LYMPHOCYTE % (test code = LY%) 25.2 % 20.5-51.1 N MONOCYTE % (test code = MO%) 8.9 % 1.7-9.3 N EOSINOPHIL % (test code = EO%) 3.4 % 0.0-7.0 N BASOPHIL % (test code = BA%) 0.7 % 0-2.5 N NEUTROPHIL # (test code = NT#) 3.59 x10 3/uL 1.80-7.70 N LYMPHOCYTE # (test code = LY#) 1.47 x10 3/uL 1.00-4.80 N MONOCYTE # (test code = MO#) 0.52 x10 3/uL 0.00-0.80 N EOSINOPHIL # (test code = EO#) 0.20 x10 3/uL 0.00-0.45 N BASOPHIL # (test code = BA#) 0.04 x10 3/uL 0.0-0.20 N Surgical pathology [id number] 14:33:07 Test Item Value Reference Range Interpretation Comments Case number (test code = [id number]) Surgical pathology See link below for report (test code = PDF Lab Report [id number]) Result status (test code This is Final Report = [id number]) for [id number] [place] [facility]
[2020-09-16] MEDS ORDERED: TETANUS & DIPHTHERIA TOX,ADULT 0.5 ML VIAL ONE (19:14)
[2020-09-16] MEDS ORDERED: LIDOCAINE 1% W/EPI 1:100,000 MDV 20 ML VIAL ONE (19:17)
--- NOTE | 2020-09-16 20:03 | RAD REPORT ---
EXAM DESCRIPTION: RAD - Tib Fib Right - 09/16/2020 7:49 pm CLINICAL HISTORY: Right leg pain FINDINGS: No fracture is seen. Soft tissue laceration lateral mid aspect adjacent to the fibula. A r adiopaque foreign body is not seen.
--- NOTE | 2020-09-16 20:19 | EDPHYS ---
Physician Documentation [facility] Name: Efren Bullock Age: 74 yrs Sex: Male : 1945 Arrival Date: 09/16/2020 Time: 16:39 Bed 23 Private MD: ED Physician Richard Freed HPI: 09/16 19:00 This 74 yrs old Male presents to ER via Ambulatory with complaints of Fall cp Injury, Laceration To Leg. 19:00 The patient presents with an injury, a laceration, clean. cp 19:00 The complaints affect the lateral aspect of right calf. Context: resulted from the cp patient falling, ladder onto piece of metal, the patient can fully bear weight, the patient is able to ambulate, with mild difficulty. Onset: The symptoms/episode began/occurred today. Associated signs and symptoms: The patient has no apparent associated signs or symptoms. Treatment prior to arrival includes: pressure bandage. Historical: - Allergies: 16:41 No Known Allergies; sv - PSHx: 16:41 kidney cancer; Cholecystectomy; sv - Immunization history:: Adult Immunizations up to date. - Social history:: Smoking status: . ROS: 19:05 Skin: Positive for laceration(s), of the lateral aspect of right calf. cp 19:05 Constitutional: Negative for body aches, chills, fever. cp 19:05 Neck: Negative for stiffness. 19:05 Respiratory: Negative for cough, shortness of breath, wheezing. 19:05 Abdomen/GI: Negative for abdominal pain, nausea, vomiting, and diarrhea. 19:05 Neuro: Negative for numbness. 19:05 All other systems are negative. Exam: 19:10 Constitutional: The patient appears in no acute distress, alert, awake, non-toxic, well cp developed, well nourished. 19:10 Head/Face: Normocephalic, atraumatic. cp 19:10 Neck: ROM/movement: is normal, is supple, without pain, no range of motions limitations. 19:10 Chest/axilla: Inspection: normal. 19:10 Cardiovascular: Rate: normal. 19:10 Respiratory: the patient does not display signs of respiratory distress, Respirations: normal. 19:10 Back: pain, is absent, ROM is normal. 19:10 Musculoskeletal/extremity: Extremities: grossly normal except: noted in the lateral aspect of right calf: laceration, tenderness, Perfusion: the extremity is normally perfused throughout, Sensation intact. Vital Signs: 16:42 BP 126 / 80; Pulse 76; Resp 16; Temp 98.6(TE); Pulse Ox 99% on R/A; Weight 75.3 kg; sv Height 5 ft. 11 in. (180.34 cm); Pain 7/10; 20:34 BP 141 / 78 RA (auto/reg); Pulse 89; Pulse Ox 100% on R/A; jp3 16:42 Body Mass Index 23.15 (75.30 kg, 180.34 cm) sv Laceration: 20:30 Wound Repair of 5cm ( 2.0in ) subcutaneous laceration to lateral aspect of right calf. cp Linear shaped.. Distal neuro/vascular/tendon intact. Anesthesia: Wound infiltrated with 10 mls of 1% lidocaine w/ Epi. Wound prep: Moderate cleansing by me, Wound irrigation by me. Skin closed with 7 4-0 Prolene using simple sutures and sterile technique. Dressed with Bacitracin, 4x4's. Patient tolerated well. MDM: 18:12 Patient medically screened. sanjuana 19:00 Differential diagnosis: open fracture, contusion, skin avulsion, simple laceration. cp 20:18 Data reviewed: vital signs, nurses notes, radiologic studies, plain films. cp 20:18 Test interpretation: by ED physician or midlevel provider: plain radiologic studies. cp Counseling: I had a detailed discussion with the patient and/or guardian regarding: the historical points, exam findings, and any diagnostic results supporting the discharge/admit diagnosis, radiology results, the need for outpatient follow up, a family practitioner, to return to the emergency department if symptoms worsen or persist or if there are any questions or concerns that arise at home. Response to treatment: the patient's symptoms have markedly improved after treatment, and as a result, I will discharge patient. 09/16 18:52 Order name: XRAY Tib Fib RIGHT; Complete Time: 20:18 09/16 20:18 Interpretation: Report reviewed. 09/16 18:52 Order name: Dressing - Wound; Complete Time: 20:29 09/16 18:52 Order name: Gloves, Sterile; Complete Time: 19:58 09/16 18:52 Order name: Setup Suture Tray; Complete Time: 19:58 cp 09/16 19:45 Order name: Wound Care: please clean and irrigate wound; Complete Time: 20:29 cp Administered Medications: 19:03 Drug: Tetanus-Diphtheria Toxoid Adult 0.5 ml {Brim Pouncer: [employer]. Exp: vg1 11/03/2021. Lot #: [id number]. } Route: IM; Site: right deltoid; 20:37 Follow up: Response: No adverse reaction vg1 20:38 Drug: Lidocaine-Epinephrine -1%: (1:100,000) 10 ml Volume: 20 ml; Route: Infiltration; vg1 20:38 Follow up: Response: No adverse reaction vg1 Disposition: 20:33 Chart complete. cp 09/17 06:25 Co-signature as Attending Physician, Richard Freed MD I agree with the assessment and [facility] plan of care. Disposition: 09/16/20 20:19 Discharged to Home. Impression: Laceration without foreign body of lower leg - right. - Condition is Stable. - Discharge Instructions: Laceration Care, Adult. - Prescriptions for Keflex 500 mg Oral Capsule - take 1 capsule by ORAL route every 8 hours for 10 days; 30 capsule. - Medication Reconciliation Form, Thank You Letter, Antibiotic Education, Prescription Opioid Use form. - Follow up: Private Physician; When: 7 - 10 days; Reason: Staple/Suture removal. - Problem is new. - Symptoms have improved. Signatures: Dispatcher [employer] Celina Borges RN RN sv Anderson, Corey, MD MD cha Ballard, Brenda RN Richard Demarco PA PA cp Garcia, Victoria, RN RN vg1 Corrections: (The following items were deleted from the chart) 09/16 20:45 20:19 09/16/2020 20:19 Discharged to Home. Impression: Laceration without foreign body bb of lower leg - right. Condition is Stable. Forms are Medication Reconciliation Form, Thank You Letter, Antibiotic Education, Prescription Opioid Use. Follow up: Private Physician; When: 7 - 10 days; Reason: Staple/Suture removal. Problem is new. Symptoms have improved. cp
--- NOTE | 2020-09-16 20:19 | ER ---
Nurse's Notes [facility] Name: Efren Bullock Age: 74 yrs Sex: Male : 1945 Arrival Date: 09/16/2020 Time: 16:39 Bed 23 Private MD: Diagnosis: Laceration without foreign body of lower leg-right Presentation: 09/16 16:39 Chief complaint: Patient states: RLE laceration after falling down about 3 feet high sv and hit a piece of metal. Denies LOC. Care prior to arrival: None. 16:39 Acuity: AMARJIT 3 sv 16:39 Method Of Arrival: Ambulatory sv 16:41 Coronavirus screen: Client denies travel out of the [place] in the last 14 days. At this sv time, the client does not indicate any symptoms associated with coronavirus-19. Ebola Screen: No symptoms or risks identified at this time. Risk Assessment: Do you want to hurt yourself or someone else? Patient reports no desire to harm self or others. Onset of symptoms was September 16, 2020. 16:42 Initial Sepsis Screen: Does the patient meet any 2 criteria? No. Patient's initial sv sepsis screen is negative. Does the patient have a suspected source of infection? No. Patient's initial sepsis screen is negative. Triage Assessment: 16:43 General: Appears in no apparent distress. comfortable, Behavior is calm, cooperative, sv appropriate for age. Pain: Complains of pain in right leg. Neuro: Level of Consciousness is awake, alert, obeys commands, Oriented to person, place, time, situation, Gait is steady. Respiratory: Respiratory effort is even, unlabored. Historical: - Allergies: 16:41 No Known Allergies; sv - PSHx: 16:41 kidney cancer; Cholecystectomy; sv - Immunization history:: Adult Immunizations up to date. - Social history:: Smoking status: . Screenin:25 Abuse screen: Denies threats or abuse. Nutritional screening: No deficits noted. vg1 Tuberculosis screening: No symptoms or risk factors identified. Fall Risk Fall in past 12 months (25 points). No secondary diagnosis (0 pts). No IV (0 pts). Ambulatory Aid- None/Bed Rest/Nurse Assist (0 pts). Gait- Normal/Bed Rest/Wheelchair (0 pts) Mental Status- Oriented to own ability (0 pts). Total [place] Fall Scale indicates Low Risk Score (25-44 pts). Fall prevention measures have been instituted. Side Rails Up X 2 Placed close to Nursing Station. Assessment: 18:24 General: Appears in no apparent distress. comfortable, Behavior is calm, cooperative. vg1 Pain: Complains of pain in right lower leg Pain currently is 5 out of 10 on a pain scale. Neuro: Level of Consciousness is awake, alert, obeys commands, Oriented to person, place, time, situation. Cardiovascular: Patient's skin is warm and dry. Pulses are palpable in right posterior tibial artery and right dorsalis pedis artery. Respiratory: Airway is patent Respiratory effort is even, unlabored. GI: No signs and/or symptoms were reported involving the gastrointestinal system. : No signs and/or symptoms were reported regarding the genitourinary system. EENT: No signs and/or symptoms were reported regarding the EENT system. Derm: Skin is intact, is healthy with good turgor. Musculoskeletal: Circulation, motion, and sensation intact. Injury Description: Laceration sustained to right lower leg. 20:43 Reassessment: Patient is alert, oriented x 3, equal unlabored respirations, skin bb warm/dry/pink. bandage to right lower leg in place clean and dry pt verbalized understanding of and agrees to plan of care discharge instructions given pt ambulated with steady gait to exit. Vital Signs: 16:42 BP 126 / 80; Pulse 76; Resp 16; Temp 98.6(TE); Pulse Ox 99% on R/A; Weight 75.3 kg; sv Height 5 ft. 11 in. (180.34 cm); Pain 7/10; 20:34 BP 141 / 78 RA (auto/reg); Pulse 89; Pulse Ox 100% on R/A; jp3 16:42 Body Mass Index 23.15 (75.30 kg, 180.34 cm) sv ED Course: 16:39 Patient arrived in ED. ds1 16:41 Triage completed. sv 16:41 Arm band placed on. sv 18:11 Richard Mosley PA is PHCP. cp 18:11 Richard Freed MD is Attending Physician. cp 18:24 Laura Rock, JULIAN is Primary Nurse. vg1 18:26 Patient has correct armband on for positive identification. Bed in low position. Call vg1 light in reach. Side rails up X 1. 19:49 XRAY Tib Fib RIGHT In Process Unspecified. EDMS 20:29 Dressings: non-adherent dressing x 1 right leg. Pranay wrap to right leg. Wound care: to jp3 laceration located on right leg was cleaned with Hibiclens, irrigated with normal saline, dressed with Neosporin, Patient tolerated well. 20:44 Assist provider with laceration repair on right leg that was between 2.6 to 7.5 cm bb using sutures. Set up tray. Performed by Richard PLAZA Dressed with 4X4s, pranay wrap Patient tolerated well. Patient did not have IV access during this emergency room visit. Administered Medications: 19:03 Drug: Tetanus-Diphtheria Toxoid Adult 0.5 ml {Rn Nicu: [employer]. Exp: vg1 11/03/2021. Lot #: [id number]. } Route: IM; Site: right deltoid; 20:37 Follow up: Response: No adverse reaction vg1 20:38 Drug: Lidocaine-Epinephrine -1%: (1:100,000) 10 ml Volume: 20 ml; Route: Infiltration; vg1 20:38 Follow up: Response: No adverse reaction vg1 Outcome: 20:19 Discharge ordered by . mayra 20:44 Discharged to home ambulatory. bb 20:44 Condition: stable 20:44 Discharge instructions given to patient, Instructed on discharge instructions, follow up and referral plans. medication usage, wound care, Demonstrated understanding of instructions, follow-up care, medications, wound care, Prescriptions given X 1. 20:45 Patient left the ED. bb Signatures: Dispatcher [employer] Celina Borges, JULIAN RN Belle Haley ds1 Karla Toth, RN RN Richard Lynn PA PA cp Pisarski, Jacob jp3 Laura Rock, RN RN vg1 Corrections: (The following items were deleted from the chart) 16:44 16:42 Pulse 76bpm; Resp 16bpm; Pulse Ox 99%; Temp 98.6F; 75.3 kg; Height 5 ft. 11 in.; sv BMI: 23.1; sv
[2020-09-17 00:42] VITALS: TEMP 98.6
[2020-09-17 00:43] VITALS: BP 141/78; O2SAT 100
== END 2020-09-16 20:45 | disposition home or self-care (01) ==
LOC: ER 16:34
PROC: 0JQN0ZZ Repair Right Lower Leg Subcutaneous Tissue and Fascia, Open Approach (ICD-10-PCS; principal; 2020-09-16)
DX: S81.811A Laceration without foreign body, right lower leg, initial encounter (principal); W11.XXXA Fall on and from ladder, initial encounter; Y93.89 Activity, other specified; Y92.9 Unspecified place or not applicable; Z23 Encounter for immunization
CPT/HCPCS: 90471; 90714; 99284

== ENCOUNTER 2020-10-05 12:02 | Emergency (ER) | payer OTHER ==
--- OUTSIDE RECORDS SUMMARY | 2020-10-05 12:07 | XMS REPORT | Continuity of Care Document ---
:1945 Author Organization [facility] t Address [address] [place] [address] Care Team Providers Name Role Phone DE LEON Attending Clinician Unavailable Payers Payer Name Policy Type Policy Number Effective Date Expiration Date S ource Problems This patient has no known problems. Allergies, Adverse Reactions, Alerts Allergy Allergy Status Severity Reaction(s) Onset Inactive Treating Comm ents Source Name Type Date Date Clinician No Known DA Active [facility] Allergie 11-20 [place] [facility] 00:00: [facility] [address] [facility] Medications This patient has no known medications. Procedures This patient has no known procedures. Encounters Start End Encounter Admission Attending Care Care Encounter Source Date/Time Date/Time Type Type Clinicians Facility Department ID 2019-10-07 2019-10-07 Outpatient IRINEO DE LEON [facility] [id number] [place] 00:00:00 00:00:[address] Results Test Description Test Time Test Comments Results Result [facility] e Comments SURGICAL SPECIMENS 2020-01-05 17:24:00 --------RUN DATE: 01/05/20 [facility] - LAB PAGE 1 RUN TIME: 1724 Specimen Inquiry RUN USER: INTERFACE --------PATIENT: ANA LUISA GOMEZ LOC: P.5N POD B U #: [id number] AGE/SX: 74/M ROOM: [facility] RE01/03/20REG DR: Clark Daugherty MD : 47 BED: 1 DIS: 01/05/20 STATUS: DIS IN TLOC: -------- SPEC #: [id number] RECD: 01/03/20 STATUS: NENA REQ #: [id number] NATANAEL: 01/03/20-[address]: Clark Daugherty MD ENTERED: 01/03/20879 SP TYPE: SURG OTHR DR: Irineo De Leon MD, Enrique A III MDORDERED: PATHGM5, PATH SPEC, H E STAIN HISTOLOGY: TISSUE ID BLK PCS LAINA LEV / PROCEDURE DISPOSITION ____ ___ ___ ___ ___ COLON SEG NTUMR A 16 1 TISSUES: A. 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 Rig Manager sections, including all possible lymph nodes, are submitted in A1-A16. INK CODE: blue-serosa opposite polyp CONTINUED ON NEXT PAGE --------RUN DATE: 01/05/20 [facility] - LAB PAGE 2 RUN TIME: 1724 Specimen Inquiry RUN USER: INTERFACE --------SPEC #: [id number] PATIENT: ANA LUISA GOMEZ #[id number] (Continued) GROSS DESCRIPTION (Continued) SECTION CODE: A1, proximal margin en face; A2, distal margin en face; A3, appendix, including entire tip; A4-A8, entire polyp; A9, ileocecal valve adjacent to polyp; A10-A11, multiple entire possible lymph nodes in area of ileocecal valve; A12-A14, multiple entire possible lymph nodes, colon mesentery; A15-A16, omentum. SSA/th Signed SIGNATURE ON FILE Dwaine Estrada MD 01/05/20 1724 -------- END OF REPORT FERRITIN 2020-01-05 11:38:00 Test Item Value Reference Range Interpretation Comme nts FERRITIN (test code = ERWIN) 110 ng/mL 30-400 N [id number] 09:09:00 Test Item Value Reference Range Interpretation Comments GLUBED (test code = GLUBED) 228 MG/DL 70-105 H BASIC METABOLIC [id number] 07:29:00 Test Item Value Reference Range Interpretation [...] code = 8.2 mg/dL 8.8-10.2 L CA) [id number] 07:29:00 Test Item Value Reference Range Interpretation Comments MAGNESIUM (test code = MAG) 1.9 mg/dL 1.4-2.6 N FE W/TOTAL IRON BINDING [id number] 06:56:00 Test Item Value Reference Range Interpretation Comments IRON (test code = IRON) 19 mcg/dL 53-167 L TOTAL IRON BINDING CAPACITY (test 273 mcg/dL 250-450 N code = TIBC) IRON SATURATION (test code = 7 % 20-50 L FESAT) CBC W/AUTO [id number] 06:32:00 Test Item Value Reference Range Interpretation [...] = BA#) 0.03 x10 3/uL 0.0-0.20 N [id number] 21:02:00 Test Item Value Reference Range Interpretation Comments GLUBED (test code = GLUBED) 184 MG/DL 70-105 H [id number] 16:42:00 Test Item Value Reference Range Interpretation Comments GLUBED (test code = GLUBED) 131 MG/DL 70-105 H [id number] 11:23:00 Test Item Value Reference Range Interpretation Comments GLUBED (test code = GLUBED) 148 MG/DL 70-105 H [id number] 08:11:00 Test Item Value Reference Range Interpretation Comments GLUBED (test code = GLUBED) 171 MG/DL 70-105 H BASIC METABOLIC [id number] 07:41:00 Test Item Value Reference Range Interpretation [...] code = 8.5 mg/dL 8.8-10.2 L CA) [id number] 07:41:00 Test Item Value Reference Range Interpretation Comments MAGNESIUM (test code = MAG) 1.7 mg/dL 1.4-2.6 N CBC W/AUTO [id number] 07:07:00 Test Item Value Reference Range Interpretation [...] = BA#) 0.02 x10 3/uL 0.0-0.20 N [id number] 20:31:00 Test Item Value Reference Range Interpretation Comments GLUBED (test code = GLUBED) 211 MG/DL 70-105 H [id number] 17:36:00 Test Item Value Reference Range Interpretation Comments GLUBED (test code = GLUBED) 162 MG/DL 70-105 H Novel Coronavirus 2019 [id number] 12:01:00 Test Item Value Reference Range Interpretation Comments Novel Coronavirus 2019 Inhouse (test Negative Negative code = COVNONPUI) Testing Criteria: Preprocedure ScreeningBASIC METABOLIC [id number] 11:26:00 Test Item Value Reference Range Interpretation [...] 9.2 mg/dL 8.8-10.2 N CA) CBC W/AUTO [id number] 10:41:00 Test Item Value Reference Range Interpretation [...] BA#) 0.05 x10 3/uL 0.0-0.20 N SURGICAL [id number] 14:39:00 RUN DATE: 11/25/19 [facility] - LAB PAGE 1 RUN TIME: 1438 Specimen Inquiry RUN USER: INTERFACE PATIENT: ANA LUISA GOMEZ LOC: [place] U #: [id number] AGE/SX: 74/M ROOM: RE11/23/19[facility] DR: Irineo De Leon MD : 47 BED: DIS: STATUS: MAXIM [facility] TLOC: SPEC #: [id number] RECD: 11/23/191872 STATUS: NENA REJosh #: [id number] NATANAEL: 11/23/19- SUBM DR: Irineo De Leon MD ENTERED: 11/23/19-4323 SP TYPE: SURG OTHR DR: DOES_NOT KNOW [...] of the specimen. Clinical correlation is recommended. IC:YG FINAL DIAGNOSIS A-ILEOCECAL VALVE POLYP, BIOPSY: - [...] CONTINUED ON NEXT PAGE RUN DATE: 11/25/19 [facility] - LAB PAGE 2 RUN TIME: 1439 Specimen Inquiry RUN USER: INTERFACE SPEC #: [id number] PATIENT: ANA LUISA GOMEZ #[id number] (Continued) GROSS DESCRIPTION (Continued) and 7 mm in maximum dimension. Apparent cautery artifact is noted. Specimen is submitted in its entirety in a single cassette. RAB/th MICROSCOPIC DESCRIPTION Microscopic performed. -------- ---- Signed SIGNATURE ON Ashley Stern MD 11/25/19 1439 END OF REPORT [id number] 17:46:00 Test Item Value Reference Range Interpretation Comments GLUBED (test code = GLUBED) 180 MG/DL 70-105 H [id number] 16:38:00 Test Item Value Reference Range Interpretation Comments GLUBED (test code = GLUBED) 183 MG/DL 70-105 H Novel Coronavirus 2018 [id number] 16:09:00 Test Item Value Reference Range Interpretation Comments Novel Coronavirus Test not Negative Previously 2019 Inhouse (test performed reported result: code = [id number]) Negative E dited by: CINHTYA o n 11/23/19:1609~~ Corrected Repor t ~~Reason (required):DUPL ICA TE REQUEST Novel Coronavirus 2018 [id number] 12:20:00 Test Item Value Reference Range Interpretation Comments Novel Coronavirus Negative Negative Positive r esults are 2019 Inhouse (test indicativ e of the presence code = [id number]) ofSARS-CoV -2 RNA, clinical correlation wit h [...] results are indicative of t he presence [id number] RN A, clinical correlation wit h patient [...] for the identification of SARS-CoV-2 RNA usingthe [employer] Super[employer] M2000 Sy stem under the FDA Emergen cy UseAuthorizatio n. The testing is perf ormed by personneltraine d in the procedures for the [employer] Super[employer] M2000 molecular diagnostic SARS-CoV-2 assa y in vitro. Coronavirus 2018 nCoV [id number] 11:34:00 Test Item Value Reference Range Interpretation Comments Coronavirus 2019 nCoV Bedside (test Negative NEGATIVE code = [id number]) BASIC METABOLIC [id number] 15:47:00 Test Item Value Reference Range Interpretation [...] 9.4 mg/dL 8.8-10.2 N CA) CBC W/AUTO [id number] 15:29:00 Test Item Value Reference Range Interpretation [...]
--- NOTE | 2020-10-05 13:42 | ER ---
Nurse's Notes [facility] Name: Efren Bullock Age: 74 yrs Sex: Male : 1945 Arrival Date: 10/05/2020 Time: 12:04 Bed 28 Private MD: Jose Gerber Diagnosis: Encounter for removal of sutures Presentation: 10/05 12:39 Chief complaint: Spouse and/or significant other states: For suture removal on a lac ca1 repair on the R leg. Lac repair done 19 days SENIOR ADMINISTRATIVE SUPPORT. Was instructed to come back after 18 days. Coronavirus screen: Client denies travel out of the [place] in the last 14 days. At this time, the client does not indicate any symptoms associated with coronavirus-19. Ebola Screen: Patient negative for fever greater than or equal to 101.5 degrees Fahrenheit, and additional compatible Ebola Virus Disease symptoms Patient denies exposure to infectious person. Patient denies travel to an Ebola-affected area in the 21 days before illness onset. No symptoms or risks identified at this time. Initial Sepsis Screen: Does the patient meet any 2 criteria? No. Patient's initial sepsis screen is negative. Does the patient have a suspected source of infection? No. Patient's initial sepsis screen is negative. Risk Assessment: Do you want to hurt yourself or someone else? Patient reports no desire to harm self or others. Onset of symptoms was October 05, 2020. 12:39 Method Of Arrival: Ambulatory ca1 12:39 Acuity: AMARJIT 5 ca1 Historical: - Allergies: 12:41 No Known Allergies; ca1 - PMHx: 12:41 High Cholesterol; Diabetes - NIDDM; Hypertension; ca1 - PSHx: 12:41 kidney cancer; Cholecystectomy; ca1 - Immunization history:: Flu vaccine is up to date. - Social history:: Smoking status: Patient denies any tobacco usage or history of. Vital Signs: 12:39 BP 125 / 96; Pulse 75; Resp 16 S; Temp 97.3(TE); Pulse Ox 100% ; ca1 ED Course: 12:04 Patient arrived in ED. am2 12:04 Jose Gerber MD is Private Physician. am2 12:40 Triage completed. ca1 12:41 Arm band placed on right wrist. ca1 13:35 Stella Hayes FNP-C is PHCP. kb 13:35 Hamzah Melendez MD is Attending Physician. kb Administered Medications: No medications were administered Outcome: 13:41 Discharge ordered by . kb 13:42 Patient left the ED. kb Signatures: Stella Hayes FNP-C AUTOMOTIVE TIRE TESTER-Gaby Parker am2 Joyce Zimmer, RN RN ca1
--- NOTE | 2020-10-05 13:42 | EDPHYS ---
Physician Documentation [facility] Name: Efren Bullock Age: 74 yrs Sex: Male : 1945 Arrival Date: 10/05/2020 Time: 12:04 Bed 28 Private MD: Jose Gerber ED Physician Hamzah Melendez HPI: 10/05 14:10 This 74 yrs old Male presents to ER via Ambulatory with complaints of Suture kb Removal. 14:10 The patient has sutures on the right singh. Previous treatment: The patient was kb initially treated 19 day(s) ago, the care was rendered at [facility], Treatment type: The patient's original treatment included sutures. Sutures/kemar progress: The patient has no c/o's. The wound is well-healing with no redness, swelling, discharge, or dehiscence reported. The patient has not experienced similar symptoms in the past. The patient has not recently seen a physician. Historical: - Allergies: 12:41 No Known Allergies; ca1 - PMHx: 12:41 High Cholesterol; Diabetes - NIDDM; Hypertension; ca1 - PSHx: 12:41 kidney cancer; Cholecystectomy; ca1 - Immunization history:: Flu vaccine is up to date. - Social history:: Smoking status: Patient denies any tobacco usage or history of. ROS: 14:11 Constitutional: Negative for fever, chills, and weight loss, MS/Extremity: Negative for kb injury and deformity. 14:11 Skin: Positive for laceration(s), of the right singh. Exam: 14:11 Constitutional: This is a well developed, well nourished patient who is awake, alert, kb and in no acute distress. Head/Face: Normocephalic, atraumatic. Respiratory: Respirations even and unlabored. No increased work of breathing, no retractions or nasal flaring. MS/ Extremity: Pulses equal, no cyanosis. Neurovascular intact. Full, normal range of motion. Neuro: Awake and alert, GCS 15, oriented to person, place, time, and situation. Moves all extremities. Normal gait. 14:11 Skin: Wound recheck: Suture laceration closure: the wound is healing well, the edges are well approximated, no evidence of dehiscence, no drainage, no erythema, no swelling. Vital Signs: 12:39 BP 125 / 96; Pulse 75; Resp 16 S; Temp 97.3(TE); Pulse Ox 100% ; ca1 Procedures: 14:11 Suture/Staple removal: Removed 7 sutures, from right singh, site appears well healed, kb dressed with steri-strips. Patient tolerated well. MDM: 13:35 Patient medically screened. kb 14:10 Data reviewed: vital signs, nurses notes. Data interpreted: Pulse oximetry: on room air kb is 100 %. Interpretation: normal. Counseling: I had a detailed discussion with the patient and/or guardian regarding: the historical points, exam findings, and any diagnostic results supporting the discharge/admit diagnosis, the need for outpatient follow up, a family practitioner, to return to the emergency department if symptoms worsen or persist or if there are any questions or concerns that arise at home. Administered Medications: No medications were administered Disposition: 18:46 Co-signature as Attending Physician, Hamzah Melendez MD I agree with the assessment and kdr plan of care. Disposition: 10/05/20 13:41 Discharged to Home. Impression: Encounter for removal of sutures. - Condition is Stable. - Discharge Instructions: Suture Removal, Care After. - Medication Reconciliation Form, Thank You Letter, Antibiotic Education, Prescription Opioid Use form. - Follow up: Emergency Department; When: As needed; Reason: Worsening of condition. Follow up: Private Physician; When: 2 - 3 days; Reason: Recheck today's complaints, Continuance of care, Re-evaluation by your physician. Signatures: Stella Hayes, [employer]ER-C GABRIELA-Hamzah Roper MD MD [facility] Joyce Zimmer RN RN ca1 Corrections: (The following items were deleted from the chart) 13:42 13:41 10/05/2020 13:41 Discharged to Home. Impression: Encounter for removal of kb sutures. Condition is Stable. Forms are Medication Reconciliation Form, Thank You Letter, Antibiotic Education, Prescription Opioid Use. Follow up: Emergency Department; When: As needed; Reason: Worsening of condition. Follow up: Private Physician; When: 2 - 3 days; Reason: Recheck today's complaints, Continuance of care, Re-evaluation by your physician. kb
[2020-10-05 13:48] VITALS: BP 125/96; TEMP 97.3; O2SAT 100
== END 2020-10-05 13:42 | disposition home or self-care (01) ==
LOC: ER 12:02
DX: Z48.02 Encounter for removal of sutures (principal)
CPT/HCPCS: 99281

== ENCOUNTER 2023-03-27 14:41 | Inpatient (IN) | payer OTHER ==
--- OUTSIDE RECORDS SUMMARY | 2023-03-27 14:46 | XMS REPORT | Continuity of Care Document ---
:1945 Author Organization [facility] t Address [address] [facility] [address] [place] [address] Care Team Providers Name Role Phone JOSE GERBER Attending Clinician Unavailable Clark Daugherty Attending Clinician Unavailable Irineo De Leon Attending Clinician Unavailable IRINEO DE LEON Attending Clinician Unavailable KNOW, DOES_NOT Admitting Clinician Unavailable Jose Gerber Admitting Clinician Unavailable Payers Payer Name Policy Type Policy Number Effective Date Expiration Date S ource Problems Condition Condition Condition Status Onset Resolution Last Treating Co mments Source Name Details Category Date Date Treatment Clinician Date History of Personal Problem 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 [facility] Allergies, Adverse Reactions, Alerts Allergy Allergy Status Severity Reaction(s) Onset Inactive Treating Comm ents Source Name Type Date Date Clinician No Known DA Active U 2020-0 [facility] [place] [facility] No Known DA Active U 2019-0 [facility] [place] [facility] 00:[facility]: Health [facility] are [facility] Social History Social Habit Start Date Stop Date Quantity Comments Source Gender identity [facility] Sexual orientation Method [facility] History of Tobacco Common Spirit - Use [facility] Sex Assigned At [birth year] [facility] 00:00:00 00:00:00 Smoking Status Start Date Stop Date Source Tobacco smoking consumption [facility] unknown Never Smoker Common [facility] Medications Ordered Filled Start Stop Current Ordering Indication Dosage Frequency Signature Comments Components Source Medication Medication Date Date Medication? Clinician (SIG) Name Name Lisinopril Lisinopril No 1{table QD Lisinopril 10 MG 10 MG t} 10 MG Pravastatin Pravastatin No 1{table QD Pravastati Sodium 40 Sodium 40 t} n Sodium MG MG 40 MG metFORMIN metFORMIN No 1{table QD metFORMIN HCl 1000 MG HCl 1000 MG t_with_ HCl 1000 a_meal} MG glipiZIDE glipiZIDE No QD glipiZIDE 10 MG 10 MG 10 MG Vital Signs Vital Name Observation Time Observation Value Comments Source height 2022-07-30 10:45:00 70 [in_i] [facility] weight 2022-07-30 10:45:00 168 [lb_av] [facility] temperature 2022-07-30 10:45:00 98.1 [degF] [facility] bmi 2022-07-30 10:45:00 24.1 kg/m2 [facility] oximetry 2022-07-30 10:45:00 96 % [facility] respiratory rate 2022-07-30 10:45:00 16 /min Comm on [facility] blood pressure 2022-07-30 10:45:00 137 mm[Hg] Common [facility] - systolic [facility] blood pressure 2022-07-30 10:45:00 72 mm[Hg] Common [facility] - diastolic [facility] Procedures Procedure Date / Time Performed Performing Clinician Kd lee [id number] 2020-01-03 00:00:00 FARHAT [facility] [id number] 2020-01-03 00:00:00 FARHAT [facility] [id number] 2020-01-03 00:00:00 FARHAT [facility] Plan of Care Planned Activity Planned Date Details Comments Source Future Scheduled 2023-03-25 COVID-19 [facility]ACC[facility] 18:55:23 [code = COVID-19 VACCINE (#1)] Future Scheduled 2023-03-25 SHINGLES VACCINES (1 [facility] Test 18:55:23 of 2) [code = SHINGLES VACCINES (1 of 2)] Future Scheduled 2023-03-25 65+ PNEUMOCOCCAL [facility] Test 18:55:23 VACCINE (1 - PCV) [code = 65+ PNEUMOCOCCAL VACCINE (1 - PCV)] Future Scheduled 2023-03-25 INFLUENZA VACCINE (#1) [facility] Test 18:55:23 [code = INFLUENZA VACCINE (#1)] Future Scheduled 2022-08-04 COVID-19 VACCINE (#[facility] Test 20:09:05 [code = COVID-19 VACCINE (#1)] Future Scheduled 2022-08-04 COLONOSCOPY SCREENING [facility] Test 20:09:05 [code = COLONOSCOPY SCREENING] Future Scheduled 2022-08-04 SHINGLES VACCINES (1 [facility] Test 20:09:05 of 2) [code = SHINGLES VACCINES (1 of 2)] Future Scheduled 2022-08-04 65+ PNEUMOCOCCAL [facility] Test 20:09:05 VACCINE (1 - PCV) [code = 65+ PNEUMOCOCCAL VACCINE (1 - PCV)] Future Scheduled 2022-08-04 INFLUENZA VACCINE [facility] Test 20:09:05 [code = INFLUENZA VACCINE] Future Scheduled 2022-07-24 INFLUENZA VACCINE [facility] Test 15:16:14 [code = INFLUENZA VACCINE] Future Scheduled 2022-07-24 COVID-19 VACCINE (#1) [facility] Test 15:16:14 [code = COVID-19 VACCINE (#1)] Future Scheduled 2022-07-24 [facility] 15:16:14 [code = COLONOSCOPY SCREENING] Future Scheduled 2022-07-24 SHINGLES VACCINES (1 [facility] Test 15:16:14 of 2) [code = SHINGLES VACCINES (1 of 2)] Future Scheduled 2022-07-24 65+ PNEUMOCOCCAL [facility] Test 15:16:14 VACCINE (1 - PCV) [code = 65+ PNEUMOCOCCAL VACCINE (1 - PCV)] Future Scheduled 2022-07-24 INFLUENZA VACCINE [facility] Test 15:16:14 [code = INFLUENZA VACCINE] Future Scheduled 2022-07-24 COVID-19 VACCINE (#1) [facility] Test 15:16:14 [code = COVID-19 VACCINE (#1)] Future Scheduled 2022-07-24 COLONOSCOPY SCREENING [facility] Test 15:16:14 [code = COLONOSCOPY SCREENING] Future Scheduled 2022-07-24 SHINGLES VACCINES (1 [facility] Test 15:16:14 of 2) [code = SHINGLES VACCINES (1 of 2)] Future Scheduled 2022-07-24 65+ PNEUMOCOCCAL [facility] Test 15:16:14 VACCINE (1 - PCV) [code = 65+ PNEUMOCOCCAL VACCINE (1 - PCV)] Future Scheduled 2022-07-23 COVID-19 VACCINE (#1) [facility] Test 19:16:25 [code = COVID-19 VACCINE (#1)] Future Scheduled 2022-07-23 COLONOSCOPY SCREENING [facility] Test 19:16:25 [code = COLONOSCOPY SCREENING] Future Scheduled 2022-07-23 SHINGLES VACCINES (1 [facility] Test 19:16:25 of 2) [code = SHINGLES VACCINES (1 of 2)] Future Scheduled 2022-07-23 65+ PNEUMOCOCCAL [facility] Test 19:16:25 VACCINE (1 - PCV) [code = 65+ PNEUMOCOCCAL VACCINE (1 - PCV)] Future Scheduled 2022-07-23 INFLUENZA VACCINE [facility] Hospital Test 19:16:25 [code = INFLUENZA VACCINE] Encounters Start End Encounter Admission Attending Care Care Encounter Source Date/Time Date/Time Type Type Clinicians Facility Department ID 2022-07-30 Outpatient JAIR, [facility] [id number] Common 09:52:05 JOSE [id number] Spirit [facility] 2020-01-03 Inpatient LeFmarshall, [facility] DAYS [id number] [facility] 11:45:00 Clark 29 [facility] are [facility] [place] 2019-11-23 Inpatient De Leon, Irineo [facility] ENDO [id number] [facility] 09:00:00 91 [facility] 2022-07-30 2022-07-30 OFFICE [facility] [id number] Co mmon 00:00:00 00:00:00 VISIT [facility] PT LEVEL [address] [facility] 2020-01-03 2020-01-03 Outpatient LeFmarshall, HCANW REF [id number] [facility] 15:19:00 15:19:00 Clark 86 [facility] 2019-12-30 2019-12-30 Outpatient EL LeFmarshall, [facility] 3DAY [id number] [facility] 09:00:00 09:00:00 Clark 47 [facility] 2019-10-07 2019-10-07 Outpatient DE LEON, IRINEO [facility] 2100 [id number] [place] 00:00:00 00:00:[address] Results Test Description Test Time Test Comments Results Result [facility] e Comments SURGICAL SPECIMENS 2020-01-05 17:24:00 --------RUN DATE: 01/05/20 [place] [facility] - LAB PAGE 1 RUN TIME: 1724 Specimen Inquiry RUN USER: INTERFACE --------PATIENT: EFREN GOMEZ LOC: P.5N POD B U #: [id number] AGE/SX: 74/M ROOM: [facility] RE01/03/20REG DR: Clark Daugherty MD : 46 BED: 1 DIS: 01/05/20 STATUS: DIS IN TLOC: -------- SPEC #: [id number] RECD: 01/03/20 STATUS: NENA REQ #: [id number] NATANAEL: 01/03/20-[address]: Clark Daugherty MD ENTERED: 01/03/20 SP TYPE: SURG OTHR DR: Irineo De Leon MD, Enrique A III MDORDERED: PATHGM5, PATH SPEC, H E STAIN HISTOLOGY: TISSUE ID BLK PCS LAINA LEV / PROCEDURE DISPOSITION ____ ___ ___ ___ ___ COLON SEG NTUMR A 16 1 TISSUES: A. 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 Rn Heart sections, including all possible lymph nodes, are submitted in A1-A16. INK CODE: blue-serosa opposite polyp CONTINUED ON NEXT PAGE --------RUN DATE: 01/05/20 [place] - LAB PAGE 2 RUN TIME: 1724 Specimen Inquiry RUN USER: INTERFACE --------SPEC #: [id number] PATIENT: EFREN #[id number] (Continued) GROSS DESCRIPTION (Continued) SECTION CODE: A1, [...] code = ERWIN) 110 ng/mL 30-400 N [id number] 09:09:00 Test Item Value Reference Range Interpretation Comments GLUBED (test code = GLUBED) 228 MG/DL 70-105 H BASIC METABOLIC [id number] 07:29:00 Test Item Value Reference Range Interpretation [...] code = 8.2 mg/dL 8.8-10.2 L CA) [id number] 07:29:00 Test Item Value Reference Range Interpretation Comments MAGNESIUM (test code = MAG) 1.9 mg/dL 1.4-2.6 N FE W/TOTAL IRON BINDING [id number] 06:56:00 Test Item Value Reference Range Interpretation Comments IRON (test code = IRON) 19 mcg/dL 53-167 L TOTAL IRON BINDING CAPACITY (test 273 mcg/dL 250-450 N code = TIBC) IRON SATURATION (test code = 7 % 20-50 L FESAT) CBC W/AUTO [id number] 06:32:00 Test Item Value Reference Range Interpretation [...] = BA#) 0.03 x10 3/uL 0.0-0.20 N [id number] 21:02:00 Test Item Value Reference Range Interpretation Comments GLUBED (test code = GLUBED) 184 MG/DL 70-105 H [id number] 16:42:00 Test Item Value Reference Range Interpretation Comments GLUBED (test code = GLUBED) 131 MG/DL 70-105 H [id number] 11:23:00 Test Item Value Reference Range Interpretation Comments GLUBED (test code = GLUBED) 148 MG/DL 70-105 H [id number] 08:11:00 Test Item Value Reference Range Interpretation Comments GLUBED (test code = GLUBED) 171 MG/DL 70-105 H BASIC METABOLIC [id number] 07:41:00 Test Item Value Reference Range Interpretation [...] code = 8.5 mg/dL 8.8-10.2 L CA) [id number] 07:41:00 Test Item Value Reference Range Interpretation Comments MAGNESIUM (test code = MAG) 1.7 mg/dL 1.4-2.6 N CBC W/AUTO [id number] 07:07:00 Test Item Value Reference Range Interpretation [...] = BA#) 0.02 x10 3/uL 0.0-0.20 N [id number] 20:31:00 Test Item Value Reference Range Interpretation Comments GLUBED (test code = GLUBED) 211 MG/DL 70-105 H [id number] 17:36:00 Test Item Value Reference Range Interpretation Comments GLUBED (test code = GLUBED) 162 MG/DL 70-105 H Novel Coronavirus 2019 [id number] 12:01:00 Test Item Value Reference Range Interpretation Comments Novel Coronavirus 2019 Inhouse (test Negative Negative code = COVNONPUI) Testing Criteria: Preprocedure ScreeningBASIC METABOLIC [id number] 11:26:00 Test Item Value Reference Range Interpretation [...] 9.2 mg/dL 8.8-10.2 N CA) CBC W/AUTO [id number] 10:41:00 Test Item Value Reference Range Interpretation [...] BA#) 0.05 x10 3/uL 0.0-0.20 N SURGICAL [id number] 14:39:00 RUN DATE: 11/25/19 [facility] - LAB PAGE 1 RUN TIME: 1439 Specimen Inquiry RUN USER: INTERFACE -------- ----PATIENT: EFREN GOMEZ LOC: [facility]MER U #: [id number] AGE/SX: 74/M ROOM: RE11/23/19[facility] DR: Irineo De Leon MD : 47 BED: DIS: STATUS: DEP [facility] TLOC: SPEC #: [id number] RECD: 11/23/19 STATUS: NENA CARRERA #: [id number] NATANAEL: 11/23/[address] [facility] [address]: Irineo De Leon MD ENTERED: 11/23/199 SP TYPE: SURG OTHR DR: DOES_NOT KNOW ORDERED: PATHGM4/2, PATH SPEC, H E STAIN/2 HISTOLOGY: TISSUE ID BLK PCS LAINA LEV/ PROCEDURE DISPOSITION ____ ___ ___ ___ ___ ILEOCECAL VALVE A 1 3 1 RECTAL BX B 1 3 1 TISSUES: A. ILEOCECAL VALVE - ILEOCECAL VALVE POLYP B. RECTAL BX - RECTAL POLYP CLINICAL HISTORY RECTAL POLYPS COMMENT Deeper recut sections of specimen B are ident ified. No high-grade dysplasia or invasive carcinoma is [...] - Black pigment consistent with prior tattoo site. - See comment. GROSS DESCRIPTION A-ILEOCECAL VALVE POLYP: A minute possible tissue fragment which measures less than 1 mm. Separate fragments of debris/possible fecal material which measure 3 mm in aggregate are noted. The specimen is submitted in its entiretyin a single cassette. B-RECTAL POLYP: Three distorted fragments of warren tissue which measure 3 mm, 7 mm, CONTINUED ON NEXT PAGE RUN DATE: 11/25/19 [facility] - LAB PAGE 2 RUN TIME: 1439 Specimen Inquiry RUN USER: INTERFACE SPEC #: [id number] PATIENT: EFREN GOMEZ #[id number] (Continued) GROSS DESCRIPTION (Continued) and 7 mm in maximum dimension. Apparent cautery artifact is noted. Specimen is submitted in its entirety in a single cassette. [facility]/th MICROSCOPIC DESCRIPTION Microscopic performed. Signed SIGNATURE ON FILE Ashley Duran MD 11/25/19 1439 END OF REPORT [id number] 17:46:00 Test Item Value Reference Range Interpretation Comments GLUBED (test code = GLUBED) 180 MG/DL 70-105 H [id number] 16:38:00 Test Item Value Reference Range Interpretation Comments GLUBED (test code = GLUBED) 183 MG/DL 70-105 H Novel Coronavirus 2018 [id number] 16:09:00 Test Item Value Reference Range Interpretation Comments Novel Coronavirus Test not Negative Previously 2019 Inhouse (test performed reported result: code = [id number]) Negative E dited by: CINTHYA harrington 11/23/19:1609~~ Corrected Repor t ~~Reason (required):DUPL ICA TE REQUEST Novel Coronavirus 2018 [id number] 12:20:00 Test Item Value Reference Range Interpretation Comments Novel Coronavirus Negative Negative Positive r esults are 2019 Inhouse (test indicativ e of the presence code = [id number]) ofSARS-CoV -2 RNA, clinical correlation wit h [...] for the identification of SARS-CoV-2 RNA usingthe [employer] M2000 Sy stem under the [facility] Emergen cy UseAuthorizatio n. The testing is perf ormed by [facility] Healt[facility] d in the procedures for the [employer] M2000 molecular diagnostic SARS-CoV-2 assa y in vitro.Positive results are indicative of t he presence xxSIHU-AiD-2 RN A, clinical correlation wit h patient [...] for the identification of SARS-CoV-2 RNA usingthe [employer] M2000 Sy stem under the [facility] Emergen cy UseAuthorizatio n. The testing is perf ormed by personneltraine d in the procedures for the [employer] M2000 molecular diagnostic SARS-CoV-2 assa y in vitro. Coronavirus 2019 nCoV [id number] 11:34:00 Test Item Value Reference Range Interpretation Comments Coronavirus 2019 nCoV Bedside (test Negative NEGATIVE code = [id number]) BASIC METABOLIC [id number] 15:47:00 Test Item Value Reference Range Interpretation [...] 9.4 mg/dL 8.8-10.2 N CA) CBC W/AUTO [id number] 15:29:00 Test Item Value Reference Range Interpretation [...] = BA#) 0.04 x10 3/uL 0.0-0.20 N Notes Date/Time Note Provider Source 2020-01-03 16:57:00-00:00 [id number] [facility] [address] [place] [address] PATIENT NAME: EFREN GOMEZ ADMIT DATE: 01/03/20 ACCOUNT NO: [id number] ROOM NO: [facility] AGE: 74 REPORT TYPE: OPERATIVE REPORT SEX: M ADMITTING PHYSICIAN:Clark Daugherty MD ATTENDING PHYSICIAN:Clark Daugherty MD OPERATION DATE: 01/03/2020 SURGEON: Clark Daugherty MD SPECIAL POLICE: Steve Mayfield MD SECOND OFFSET PROOF PRESS OPERATOR: Austin Bustillos MD and Chevy Frank MD PREOPERATIVE DIAGNOSIS: Colon polyp. POSTOPERATIVE DIAGNOSES: Colon polyp plus intra- abdominal adhesions. PROCEDURES PERFORMED: 1. Single incision laparoscopic right hemicolect krysta. 2. Single incision laparoscopic extensive lysis of abdominal adhesions. DEVICES: None. IMPLANTS: None. SPECIMENS: Right colon. COMPLICATIONS: None apparent. ANESTHESIA: General. INDICATIONS: The patient is a 74-year-ol d gentleman who has a history of colon polyp, which was found after a sigmoid polyp was removed and a full colonoscopy was able to be completed. Once the polyp was identified at the ileocecal valve area, it was noted to be felipe ble to be removed endoscopically; therefore, he was referred for colectomy. FINDINGS: Entry into the abdomen was achieved vi a cutdown technique at the umbilicus. We were able to enter sharply and ent ered the abdomen without any difficulty. However, once we were in the abdomen , we placed a single port device and noted significant amount of a dhesions between the omentum and small bowel, omentum and anterior abdominal wa ll, omentum and gallbladder bed fossa, omentum and colon, small bow el and anterior abdominal wall, and small bowel and colon. The colon was also noted to be very dense ly adherent to the retroperitoneum and the gallbladder bed fossa. This was an extremely difficult dissection due t o the amount of scarring and adhesions and the nature of his prior surgical h istory including open PATIENT NAME: EFREN GOMEZ 329 cholecystectomy and kidney procedure. After 2 hours of lysis of ad hesions, we were able to perform a medial to lateral approach and protect the retroperitoneum and the duodenum. The duodenum was identified. We then used the white load on the s tapler to come across the pedicle for the ileocolic vessel. We then were a ble to extracorporealize the transverse colon and the asc ending colon as well as the cecum and terminal ileum and we were able to perform a side-to-s timbo functional end-to-end anastomosis. We then placed this back intraabdominally and we did need to do some cautery work on the liver for hemostasis purposes. PROCEDURE IN DETAIL: The patient was seen and ev aluated in preoperative holding. Proper consents were obtained. All ques tions were answered prior taken back to the operating theater. The patient was taken back to the operating theater, placed in supine position. Th e patient underwent general anesthesia via anesthesia staff. Proper time-out occurred with everyone in agreem ent of procedure. The patient was placed in supine position, had a Green catheter placed by OR team. The patient underwent general anesthesia v ia anesthesia staff. The patient received IV antibiot ics and had bilateral lower extremity SCDs in place prior to initiation of procedure. Proper time-out occurred with everyone in [facility] ent of procedure. The incision was created just below the umbilicus and we dissected through the subcutaneous tissue to the umbilical stalk. The umbilical stalk was released and entry into the abdomen was achieved with sharp dissection. Upon entry into the abdomen, we were able to place a single port device and achieved pneumoperitoneum. A second incision was created for a 5-mm trocar, which was placed on the patient's left upper abdomen for a ided visualization due to the amount of adhesions. Careful blunt, sharp, and m inimal electrocautery dissection was utilized to l yse adhesions for over 2 hours due to the extensive nature of scar tissue that w as present in the right upper quadrant, but also in other quadrants as well. The omentum was adheren t to multiple locations and small bowel and colon and the small raúl l and colon were also adherent to each other. The gallbladder bed fossa was also very d ensely adherent to the colon and omentum. We were able to perform a medial to lateral approach into the ileocolic pedicle and we were able to isolate th is and stapled across with a vascular load. Upon doing so, we were ab le to mobilize the ascending colon and transverse colon and to the duodenum and sweep this down to the retroperitoneum protecting it. Once this was done, the l ateral attachments were taken and this freed up the hepatic flexure. At this point, we extracorporealized the bowel a nd we took the mesentery with suture ligation and vessel sealing device. The a nastomosis was created in a [id number] functional end-to-end anastomosis. The common channel was inspected and then stapled across with another f iring of the staple load. The mesenteric area was inspecte d for hemostasis as well as the staple line and this was placed back intraabdomin ally. We then reinsufflated the abdomen and checked for hemostasis, which appeared to be ach ieved. We also inspected the liver bed and there was some electrocautery that was requi red in order to complete hemostasis. Next, we removed the port and then c losed the fascia with #1 PDS PATIENT NAME: EFREN GOMEZ 329 suture. Then, we tacked the umbilicus ba ck down with 3-0 Vicryl and closed the skin with 4-0 Monocryl. All counts were correct at the end of the case. The patient tolerated the procedure well and was extubated in the operatin g theater and taken to the postanesthesia care unit in stable condition. Dictated By: Clark Daugherty MD WT: OP:P.JULES/FARHAT/MARY ANN Conf#: [id number]/DID#: [id number] Authenticated by Clark Daugherty MD On 01/03 07:36:31 AM at 0736 PATIENT NAME: EFREN GOMEZ 329 2020-01-02 13:17:00-00:00 [id number] [place] [address] PATIENT NAME: EFREN GOMEZ ADMIT DATE: ACCOUNT NO: [id number] ROOM NO: AGE: 74 REPORT TYPE: eELECTROCARDIOGRAM SEX: M ADMITTING PHYSICIAN: Clark Daugherty MD ATTENDING PHYSICIAN: Clark Daugherty MD Order: [id number] Test Reason : PREOP Test Date/Time Stamp: ThuJan 02 2020 13:17:01 Blood Pressure : / mmHG Vent. Rate : 074 BPM Atrial Rate : 074 BPM P-R Int : 162 ms QRS Dur : 140 ms QT Int : 390 ms P-R-T Axes : 047 -66 026 degree s QTc Int : 432 ms Normal sinus rhythm Right bundle branch block Left anterior fascicular block Bifascicular block Abnormal ECG When compared with ECG of 02-JAN-2020 13:16, (Un confirmed) No significant change was found Confirmed by DAMIEN ROCK MD ([id number]) on 01/02/20 20 8:24:25 PM Referred By: Clark Daugherty Confirmed by:DAMIEN PEÑA MD Electronically Signed by Damien Rock MD on at 4 PATIENT NAME: EFREN GOMEZ 329 2019-11-24 17:12:00-00:00 [id number] [facility] [address] [place] [address] PATIENT NAME: EFREN GOMEZ ADMIT DATE: 11/23/19 ACCOUNT NO: [id number] ROOM NO: AGE: 74 REPORT TYPE: OPERATIVE REPORT SEX: M ADMITTING PHYSICIAN: ATTENDING PHYSICIAN:Irineo De Leon MD OPERATION DATE: 11/23/2019 PREOPERATIVE DIAGNOSIS: Adenomatous polyp of the rectum, not amenable to removal by colonoscopy. POSTOPERATIVE DIAGNOSES: 1. Adenomatous polyp of the rectum, not amenable to removal by colonoscopy. 2. Large ileocecal valve polyp, not amenable to removal by colonoscopy. PROCEDURES: 1. Colonoscopy with multiple biopsies of the ile ocecal valve polyp. 2. Transanal excision full thickness in nature o f the rectal polyp. SURGEON: Colorectal surgeon, Irineo De Leon MD OFFSET PROOF PRESS OPERATOR: Surgical catering administrative assistant, Dr. Austin win. ANESTHESIA: General anesthesia. COMPLICATIONS: None. CONDITION: Stable. SPECIMEN: 1. Colonoscopy with ileocolic biopsies of polyp. 2. Transanal excision in piecemeal fashion. INDICATION AND FINDINGS: The patient was referre d because of an adenomatous polyp in the rectum not amenable to removal and also incomplete colonoscopy there was felt to be an extrinsic compression of the rectosigmoid area. Under anesthesia in the operating room, we were able t o perform a complete colonoscopy. There was noted to be the 1.5 cm po lyp of the rectum, very flat and smooth and could not be removed by colonosco py as it did not lift well. There was also however, a la rge polypoid and flat lesion right on the ileocecal valve. It could not be removed safely with endos copic techniques. Biopsies were taken. Following the colonoscopy, the trans anal excision was performed using a video-assisted techn ique as the lesion was approximately 13 cm from the anal verge in the posterior quadrant. We went full-thickness through the muscle layers, removed it in piecem eal fashion and left the defect to heal inset with a secondary nature. The patient tolerated the procedure well. Follow ing the biopsies, the patient PATIENT NAME: EFREN GOMEZ [id number] will require a planned ileoc olic resection for the large polypoid lesion of the ileocecal valve, which was not amenable to remov al by colonoscopy. PROCEDURE: He was taken to the operating room an d after induction of anesthesia, placed in candy cane stirrup s. First colonoscopy was performed and able to get to the cecum confirmed by the ileoce chandu valve and appendiceal orifice. The large polypoid lesion of the ileoce chandu valve was identified. Multiple biopsies were taken. This could not be removed by colonoscopic technique due to the size and location. Once the colonoscopy was performed, we prepped and draped the anal area. We introduced the TAMIS device, secured it in a place where the pneumorectum was creat ed. Using laparoscopic instruments and a Bovie hook, we were able t o identify the polypoid lesion of the posterior wall of the rectum, in a tangenti al fashion excised through all layers of the rectal wall to the perirectal fat. It was very difficul t and tedious procedure. It was difficult to maintain pneumorectum and there fore, this was removed in piecemeal fashion. Once this was removed, hemostasis was achieved with cautery. We cauterized the edges as well to ensure any g ross polypoid tissue at the margins. The area was left to heal by secondary intent. We released the pneumorectum. We released the device. The area w as dressed with 4 x 4 and tape. He tolerated the procedure well and was taken to the recovery room in good condition. Dictated By: Irineo De Leon MD WT: OP:VINNY/SHIVAM/MARY ANN Conf#: [id number]/DID#: [id number] Authenticated by Irineo De Leon MD On 11/30/2019 1 0:44:43 AM Electronically Signed by Irineo De Leon MD on 11/17 10/06 at 1045 PATIENT NAME: EFREN GOMEZ 791 2019-11-21 14:51:00-00:00 [id number] [facility] [address] [place] [id number] PATIENT NAME: EFREN GOMEZ ADMIT DATE: 11/23/19 ACCOUNT NO: [id number] ROOM NO: AGE: 74 REPORT TYPE: eELECTROCARDIOGRAM SEX: M ADMITTING PHYSICIAN: ATTENDING PHYSICIAN: Irineo De Leon MD Order: [id number] Test Reason : SDS Test Date/Time Stamp: ThuNov 21 2019 14:51:29 Blood Pressure : / mmHG Vent. Rate : 070 BPM Atrial Rate : 070 BPM P-R Int : 162 ms QRS Dur : 144 ms QT Int : 404 ms P-R-T Axes : 035 -67 028 degree s QTc Int : 436 ms Normal sinus rhythm Right bundle branch block Left anterior fascicular block Bifascicular block Abnormal ECG No previous ECGs available Confirmed by YEVGENIY CUELLAR ([id number]) on 11/23/2019 8: 51:28 AM Referred By: Irineo De Leon Confirmed by:YEVGENIY CUELLAR Electronically Signed by Yevgeniy Cuellar MD on at 0833 PATIENT NAME: EFREN GOMEZ [id number]
[2023-03-27 15:36] LABS: Absolute Lymphocytes (CBC) 1.4 K/uL (0.7-4.9); Hematocrit 32.7 % (39.6-49.0); Lymphocytes % 12.7 % (15.3-44.8); MCV 86.2 fL (80-100); MPV 8.4 fL (7.6-11.3); Platelets 293 thou/uL (152-406)
[2023-03-27] MEDS ORDERED: NA CHLORIDE 0.9% 1,000 ML ONE (15:38)
[2023-03-27 15:39] LABS: Protime INR 1.05
--- NOTE | 2023-03-27 15:52 | RAD REPORT ---
EXAM DESCRIPTION: Matthew Single View03/27/2023 3:27 pm CLINICAL HISTORY: Chest pain COMPARISON: 2019 FINDINGS: The lungs appear clear of acute infiltrate. The heart is normal size IMPRESSION: No acute abnormalities displayed
[2023-03-27 15:57] LABS: Albumin 3.4 g/dL (3.4-5.0); Bilirubin Direct 0.2 mg/dL (0-0.2); Bilirubin Indirect, Calculated 0.4 mg/dL (0.2-0.8); Bilirubin Total 0.6 mg/dL (0.2-1.0); Magnesium 2.6 mg/dL (1.6-2.4); Potassium 4.1 mEq/L (3.5-5.1); Protein, Total 7.9 g/dL (6.4-8.2); Troponin High Sensitivity 9.3 pg/mL (<58.9)
[2023-03-27 16:29] LABS: Blood Morphology Comment NOT SEEN (NOT SEEN); Platelet Estimate ADEQ; White Blood Cell Scan OK (OK)
[2023-03-27] MEDS ORDERED: PANTOPRAZOLE INJ 80 MG in NA CHLORIDE 0.9% 250 ML IV ONE (17:00)
[2023-03-27] MEDS ORDERED: MULTIVITAMINS 10 ML VIAL (INJ) IV ONE (17:05)
[2023-03-27] MEDS ORDERED: PANTOPRAZOLE 40 MG INJ ONE (17:05)
--- NOTE | 2023-03-27 17:51 | RAD REPORT ---
EXAM DESCRIPTION: CT - Abdomen Pelvis Wo Contrast - 03/27/2023 5:29 pm CLINICAL HISTORY: Abdominal pain GI bleed COMPARISON: 2019 TECHNIQUE: Computed axial tomography of the abdomen and pelvis was obtained. IV and oral contrast we re not requested. All CT scans are performed using dose optimization technique as appropriate and may include automated exposure control or mA/KV adjustment according to patient size. FINDINGS: The evaluation of solid organs, vessels and bowel is limited secondary to the lack of con trast administration. Liver spleen, pancreas, left adrenal and kidneys grossly normal Small right adrenal myelolipoma Small duodenal diverticulum Diverticula stem from the colon. Mild stranding adjacent to the sigmoid colon consistent with a mild diverticulitis. Postsurgical changes involve the bowel. 3.2 centimeter infarct has developed since the prior exam within the omentum near midline at the leve l the kidneys. There is not significant stranding so this probably is relatively old. 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
--- NOTE | 2023-03-27 18:12 | EDPHYS ---
Physician Documentation [facility] Name: Efren Bullock Age: 77 yrs Sex: Male : 1945 Arrival Date: 03/27/2023 Time: 14:41 Bed 13 Private MD: ED Physician Shirin Marte HPI: 03/27 16:07 This 77 yrs old Male presents to ER via Ambulatory with complaints of rectal sb4 bleeding. 16:07 The patient presents to the emergency department with bleeding from the rectum/anus, sb4 that is moderate. Onset: The symptoms/episode began/occurred 2 day(s) ago. Context: the patient has no known special context relating to the rectal area complaint(s). 19:32 Modifying factors: The symptoms are alleviated by nothing, The symptoms are aggravated sb4 by nothing. Associate signs and symptoms: Pertinent negatives: abdominal pain, diarrhea, lower GI bleeding, vomiting. The patient has not experienced similar symptoms in the past. The patient has not recently seen a physician. Historical: - Allergies: 15:04 No Known Allergies; cm10 - PMHx: 15:04 Diabetes - NIDDM; High Cholesterol; Hypertension; cm10 - Immunization history:: Adult Immunizations. - Social history:: Smoking status: unknown. ROS: 19:32 Constitutional: Negative for fever, chills, and weight loss. sb4 19:32 Abdomen/GI: Positive for black/tarry stool. 19:32 Neuro: Positive for near syncope, weakness. 19:32 All other systems are negative. Exam: 19:32 Constitutional: This is a well developed, well nourished patient who is awake, alert, sb4 and in no acute distress. Head/Face: Normocephalic, atraumatic. Eyes: Extra-ocular motions intact. Periorbital areas with no swelling, redness, or edema. ENT: Mucous membranes moist. Cardiovascular: Regular rate and rhythm with a normal S1 and S2. Respiratory: Lungs have equal breath sounds bilaterally, clear to auscultation and percussion. No rales, rhonchi or wheezes noted. No increased work of breathing, no retractions or nasal flaring. Abdomen/GI: Soft, non-tender, no distension. Skin: Warm, dry with normal turgor. Normal color with no rashes, no lesions, and no evidence of cellulitis. MS/ Extremity: Pulses equal, no cyanosis. Neurovascular intact. Full, normal range of motion. Neuro: Awake and alert, GCS 15, oriented to person, place, time, and situation. Cranial nerves II-XII grossly intact. Motor strength 5/5 in all extremities. Sensory grossly intact. Cerebellar exam normal. Normal gait. Vital Signs: 15:01 BP 85 / 61; Pulse 89; Resp 18 S; Temp 97(TE); Pulse Ox 100% on R/A; Weight 73.94 kg; cm10 Height 5 ft. 10 in. ; Pain 0/10; 15:32 BP 101 / 66; Pulse 84; Resp 18; Pulse Ox 98% on R/A; ph 16:03 BP 113 / 70; Pulse 82; Resp 18; Pulse Ox 100% on R/A; ph 16:30 BP 126 / 76; Pulse 80; Resp 18; Pulse Ox 99% on R/A; ph 17:00 BP 119 / 76; Pulse 81; Resp 16; Pulse Ox 97% on R/A; ph 17:30 BP 121 / 87; Pulse 81; Resp 16; Pulse Ox 98% on R/A; ph 18:45 BP 121 / 76; Pulse 83; Resp 18; Pulse Ox 99% on R/A; ph 19:30 BP 140 / 81; Pulse 85; Resp 18 S; Pulse Ox 100% on R/A; ha1 15:01 Body Mass Index 23.39 (73.94 kg, 177.8 cm) cm10 15:01 Pain Scale: Adult cm10 MDM: 15:01 Patient medically screened. sb4 19:32 Differential diagnosis: upper GI bleed, lower GI bleed, diverticulitis, anemia. Data sb4 reviewed: vital signs, nurses notes, lab test result(s), EKG, radiologic studies, and as a result, I will discharge patient. Consideration of Admission/Observation Patient was admitted/placed on observation. Management of patient was discussed with the following: Hospitalist: Leslie PEDERSON. Historians other than the Patient: Daughter/Son: daughter. Care significantly affected by the following chronic conditions: Diabetes, Hypertension. Counseling: I had a detailed discussion with the patient and/or guardian regarding the historical points, exam findings, and any diagnostic results supporting the discharge/admit diagnosis, lab results, radiology results, the need for further work-up and treatment in the hospital. 03/27 15:11 Order name: Basic Metabolic Panel; Complete Time: 16:03 sb4 03/27 15:11 Order name: CBC with Diff; Complete Time: 16:33 sb4 03/27 15:11 Order name: LFT's; Complete Time: 16:03 sb4 03/27 15:11 Order name: Magnesium; Complete Time: 16:03 sb4 03/27 15:11 Order name: NT PRO-BNP; Complete Time: 16:03 sb4 03/27 15:11 Order name: PT-INR; Complete Time: 15:41 sb4 03/27 15:11 Order name: Troponin HS; Complete Time: 16:03 sb4 03/27 15:11 Order name: Type And Screen; Complete Time: 15:13 sb4 03/27 15:11 Order name: Lactate w/ 2H reflex if indic.; Complete Time: 15:54 sb4 03/27 16:29 Order name: CBC Smear Scan; Complete Time: 16:33 EDME 03/27 20:59 Order name: ABO/RH no charge; Complete Time: 15:13 EDMS 03/27 15:11 Order name: XRAY Chest (1 view); Complete Time: 15:54 sb4 03/27 16:16 Order name: CT Abd/Pelvis - Without Contrast; Complete Time: 17:57 sb4 03/27 15:11 Order name: EKG; Complete Time: 15:12 sb4 03/27 18:54 Order name: CONS Physician Consult EDME 03/27 15:11 Order name: Cardiac monitoring; Complete Time: 15:47 sb4 03/27 15:11 Order name: EKG - Nurse/Tech; Complete Time: 16:03 sb4 03/27 15:11 Order name: IV Saline Lock; Complete Time: 15:47 sb4 03/27 15:11 Order name: Labs collected and sent; Complete Time: 15:47 sb4 03/27 15:11 Order name: O2 Per Protocol; Complete Time: 15:47 sb4 03/27 15:11 Order name: O2 Sat Monitoring; Complete Time: 15:47 sb4 EC:09 Rate is 80 beats/min. Rhythm is regular, Normal Sinus Rhythm with Left bundle branch sb4 block, Right bundle branch block. NH interval is normal at 172 msec. QRS interval is normal at 134 msec. QT interval is normal at [address] changes noted. Interpreted by me. Reviewed by me. Administered Medications: 15:40 Drug: NS 0.9% IV 1000 ml Route: IV; Rate: 1 bolus; Site: right forearm; ph 16:45 Follow up: Response: No adverse reaction; IV Status: Completed infusion; IV Intake: ph 1000ml 17:35 Drug: Pantoprazole IVP 80 mg Route: IVP; Site: right forearm; ph 18:26 Follow up: Response: No adverse reaction ph 17:53 Drug: Pantoprazole IV 8 mg/hr Route: IV; Rate: 25 ml/hr; Site: right forearm; ph 18:26 Follow up: Response: No adverse reaction; IV Status: Infusion continued upon admission ph 18:26 Drug: metroNIDAZOLE IVPB 500 mg Volume: 100 ml; Route: IVPB; Rate: 200 ml/hr; Infused ph Over: 30 mins; Site: right hand; 18:45 Drug: Ciprofloxacin IVPB 400 mg Volume: 200 ml; Route: IVPB; Infused Over: 60 mins; ph Site: right hand; Disposition Summary: 03/27/23 18:12 Hospitalization Ordered Hospitalization Status: Inpatient Admission sb4 Provider: Berny Smith [facility] sb4 Condition: Fair sb4 Problem: new sb4 Symptoms: are unchanged sb4 Bed/Room Type: Standard sb4 Room Assignment: 412(03/27/23 20:00) mw Diagnosis - GI Bleed/ Gastrointestinal hemorrhage, unspecified sb4 - Acute kidney failure, unspecified sb4 Discharge Instructions: - Discharge Summary Sheet ph - Diverticulitis ph - Diverticulitis, [id number] ph - Gastrointestinal Bleeding, [id number] ph Forms: - Medication Reconciliation Form sb4 - SBAR form sb4 - Leadership Thank You Letter sb4 Signatures: Dispatcher [employer] Xiomy Kamara RN RN mw Hall, Patricia, RN RN ph Brown, Sophia, PA-C PA-C sb4 Fely Wagner RN RN cm10 Corrections: (The following items were deleted from the chart) 20:00 18:12 sb4 mw
--- NOTE | 2023-03-27 18:12 | ER ---
Nurse's Notes [facility] Name: Efren Bullock Age: 77 yrs Sex: Male : 1945 Arrival Date: 03/27/2023 Time: 14:41 Bed 13 Private MD: Diagnosis: GI Bleed/ Gastrointestinal hemorrhage, unspecified;Acute kidney failure, unspecified Presentation: 03/27 15:01 Chief complaint: Patient states: dark tarry stools onset 3 days ago. Pt denies any cm10 abdominal pain. Pt reports some dizziness. Coronavirus screen: Vaccine status: Patient reports receiving the 2nd dose of the covid vaccine. Client denies travel out of the [place] in the last 14 days. Ebola Screen: Patient denies travel to an Ebola-affected area in the 21 days before illness onset. No symptoms or risks identified at this time. Initial Sepsis Screen: Does the patient meet any 2 criteria? No. Patient's initial sepsis screen is negative. Does the patient have a suspected source of infection? No. Patient's initial sepsis screen is negative. Risk Assessment: Do you want to hurt yourself or someone else? Patient reports no desire to harm self or others. Onset of symptoms was March 27, 2023. 15:01 Method Of Arrival: Ambulatory cm10 15:01 Acuity: AMARJIT 2 cm10 Historical: - Allergies: 15:04 No Known Allergies; cm10 - PMHx: 15:04 Diabetes - NIDDM; High Cholesterol; Hypertension; cm10 - Immunization history:: Adult Immunizations. - Social history:: Smoking status: unknown. Screenin:33 Abuse screen: Denies threats or abuse. Denies injuries from another. Nutritional ph screening: No deficits noted. Tuberculosis screening: No symptoms or risk factors identified. 15:36 [facility] ED Fall Risk Assessment (Adult). ph Assessment: 15:34 General: Appears in no apparent distress. comfortable, Behavior is calm, cooperative, ph appropriate for age. Pain: Denies pain. Neuro: Level of Consciousness is awake, alert, obeys commands, Oriented to person, place, time, situation, Reports dizziness, weakness. Cardiovascular: Reports fatigue, lightheadedness, Denies chest pain, shortness of breath, Capillary refill < 3 seconds in bilateral fingers Patient's skin is warm and dry. Rhythm is sinus rhythm. Respiratory: Airway is patent Respiratory effort is even, unlabored. GI: Reports bloody stool, Patient currently denies abdominal pain, nausea, vomiting. Derm: Skin is normal. 17:00 Reassessment: Patient appears in no apparent distress at this time. Patient and/or ph family updated on plan of care and expected duration. Pain level reassessed. Patient is alert, oriented x 3, equal unlabored respirations, skin warm/dry/pink. 18:27 Reassessment: Patient appears in no apparent distress at this time. Patient and/or ph family updated on plan of care and expected duration. Pain level reassessed. Patient is alert, oriented x 3, equal unlabored respirations, skin warm/dry/pink. 19:30 General: Appears comfortable, Behavior is calm, cooperative. Pain: Denies pain. Neuro: ha1 Level of Consciousness is awake, alert, obeys commands, Oriented to person, place, time, situation. Cardiovascular: Patient's skin is warm and dry. Respiratory: Airway is patent Respiratory effort is even, unlabored, Respiratory pattern is regular, symmetrical. GI: Abdomen is flat, non-distended, Bowel sounds present X 4 quads. Reports bloody stool, Patient currently denies abdominal pain. 19:30 : No signs and/or symptoms were reported regarding the genitourinary system. ha1 Musculoskeletal: Circulation, motion, and sensation intact. Range of motion: intact in all extremities. 20:27 Reassessment: attempted to give report X3 time . nobody answers phone. ha1 21:15 Reassessment: Patient and/or family updated on plan of care and expected duration. Pain ha1 level reassessed. Patient is alert, oriented x 3, equal unlabored respirations, skin warm/dry/pink. report given to JULIAN Marquez. Vital Signs: 15:01 BP 85 / 61; Pulse 89; Resp 18 S; Temp 97(TE); Pulse Ox 100% on R/A; Weight 73.94 kg; cm10 Height 5 ft. 10 in. ; Pain 0/10; 15:32 BP 101 / 66; Pulse 84; Resp 18; Pulse Ox 98% on R/A; ph 16:03 BP 113 / 70; Pulse 82; Resp 18; Pulse Ox 100% on R/A; ph 16:30 BP 126 / 76; Pulse 80; Resp 18; Pulse Ox 99% on R/A; ph 17:00 BP 119 / 76; Pulse 81; Resp 16; Pulse Ox 97% on R/A; ph 17:30 BP 121 / 87; Pulse 81; Resp 16; Pulse Ox 98% on R/A; ph 18:45 BP 121 / 76; Pulse 83; Resp 18; Pulse Ox 99% on R/A; ph 19:30 BP 140 / 81; Pulse 85; Resp 18 S; Pulse Ox 100% on R/A; ha1 15:01 Body Mass Index 23.39 (73.94 kg, 177.8 cm) cm10 15:01 Pain Scale: Adult cm10 Vitals: 15:32 Cardiac Rhythm Assessment Sinus rhythm. ph ED Course: 14:53 Patient arrived in ED. cm10 14:55 Yane Dennis PA-C is PHCP. sb4 14:55 Shirin Marte MD is Attending Physician. sb4 15:04 Triage completed. cm10 15:04 Arm band placed on Patient placed in an exam room, on a stretcher. cm10 15:06 Tatyana Manzanares, RN is Primary Nurse. ph 15:29 XRAY Chest (1 view) In Process Unspecified. EDMS 15:31 Initial lab(s) drawn, by me, sent to lab. T\T\S collected, blood band applied to patient. ph Inserted saline lock: 20 gauge in right forearm, using aseptic technique. Blood collected. 15:36 Patient has correct armband on for positive identification. Placed in gown. Bed in low ph position. Call light in reach. Side rails up X2. Client placed on continuous cardiac and pulse oximetry monitoring. NIBP monitoring applied. 15:48 Lactate w/ 2H reflex if indic. Sent. ph 15:48 Type And Screen Sent. ph 15:48 Basic Metabolic Panel Sent. ph 15:48 CBC with Diff Sent. ph 15:48 LFT's Sent. ph 15:48 Magnesium Sent. ph 15:48 NT PRO-BNP Sent. ph 15:48 Troponin HS Sent. ph 17:31 CT Abd/Pelvis - Without Contrast In Process Unspecified. EDMS 18:12 Berny Smith is Hospitalizing Provider. sb4 21:20 No provider procedures requiring assistance completed. Patient admitted, IV remains in ha1 place. 21:21 Provided Education on: need for admit . ha1 Administered Medications: 15:40 Drug: NS 0.9% IV 1000 ml Route: IV; Rate: 1 bolus; Site: right forearm; ph 16:45 Follow up: Response: No adverse reaction; IV Status: Completed infusion; IV Intake: ph 1000ml 17:35 Drug: Pantoprazole IVP 80 mg Route: IVP; Site: right forearm; ph 18:26 Follow up: Response: No adverse reaction ph 17:53 Drug: Pantoprazole IV 8 mg/hr Route: IV; Rate: 25 ml/hr; Site: right forearm; ph 18:26 Follow up: Response: No adverse reaction; IV Status: Infusion continued upon admission ph 18:26 Drug: metroNIDAZOLE IVPB 500 mg Volume: 100 ml; Route: IVPB; Rate: 200 ml/hr; Infused ph Over: 30 mins; Site: right hand; 18:45 Drug: Ciprofloxacin IVPB 400 mg Volume: 200 ml; Route: IVPB; Infused Over: 60 mins; ph Site: right hand; Medication: 15:33 VIS not applicable for this client. ph Intake: 16:45 IV: 1000ml; Total: 1000ml. ph Outcome: 18:12 Decision to Hospitalize by Provider. john 21:20 Admitted to Tele accompanied by tech, via wheelchair, room 412, with chart, Report ha1 called to JULIAN Marquez 21:20 Condition: stable 21:20 Discharge instructions given to patient, Instructed on the need for admit, Demonstrated understanding of instructions. 21:22 Patient left the ED. ha1 Signatures: Dispatcher [employer] Tatyana Parks RN RN ph Ayala, Heidy, RN RN ha1 Yane Dennis PAJeffrey PA-Fely Obrien RN RN cm10
[2023-03-27] MEDS ORDERED: METRONIDAZOLE 500mg IVPB 500 MG/100 ML BAG IV ONE (18:26)
[2023-03-27] MEDS ORDERED: CIPROFLOXACIN 400mg IV 400 MG/200 ML BAG IV ONE (18:26)
--- NOTE | 2023-03-27 18:50 | P.HP ---
Certification for Inpatient Patient admitted to: Inpatient With expected LOS: <2 Midnights Patient will require the following post-hospital care: None Practitioner: I am a practitioner with admitting privileges, knowledge of patient current condition, hospital course, and medical plan of care. Services: Services provided to patient in accordance with Admission requirements found in Title 42 Section 412.3 of the Code of Federal Regulations Patient History Date of Service: 03/27/23 Reason for admission: Rectal Bleeding History of Present Illness: 77-year-old male with a past medical history of diabetes, dey-kexcagc-tmcuhjops diabetes mellitus, hyperlipidemia, hypertension presents to the emergency room for rectal bleeding. He reports rectal bleeding started 2 days ago. He reports bright red bleeding 2-3 stools per day x2 days. He reports occasional epigastric pain, reflux that is worse at night. He reports alcohol use 2-3 drinks monthly. No reported tobacco use, denies nausea vomiting, shortness of breath, chest pain. Plan to admit inpatient for GI bleed, acute kidney failure,. Dr. Arias has been notified, plan to do EGD in the a.m. Keep patient n.p.o. after midnight, ED evaluation Rate is 80 beats/min. Rhythm is regular, Normal Sinus Rhythm with Left bundle branch block, Right bundle branch block. RI interval is normal at 172 msec. QRS interval is normal at 134 msec. QT interval is normal at [address] changes noted. Laboratory evaluation WBCs 11.20, early left shift 12.7, microcytic anemia 10.7, 32.7, acute on chronic kidney injury, BUN 34 creatinine 2.08, Dr. Coburn consulted. 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 omental infarction, chest x-ray IMPRESSION: No acute abnormalities displayed Allergies No Known Drug Allergies Allergy (Verified 05/03/18 16:49) Unknown Home Medications: Cephalexin [Keflex] 500 mg PO Q6HR 05/03/18 Glipizide [Glipizide ER] 5 mg PO DAILY 05/03/18 Metformin HCl [Glucophage] 1,000 mg PO BID 05/03/18 Pravastatin Sodium 40 mg PO DAILY 05/03/18 lisinopriL [Prinivil] 10 mg PO DAILY 05/03/18 - Past Medical/Surgical History Diabetic: Yes -: Hypertension -: hyperlipidemia -: rnm-nifnfqp-zputtufas diabetes mellitus -: GI bleed -: Diverticulitis -: Cholecystectomy -: 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 - Social History Smoking Status: Never smoker Alcohol use: Yes CD- Drugs: No Caffeine use: Yes Place of Residence: Home Review of Systems 10-point ROS is otherwise unremarkable Physical Examination - Physical Exam General: Alert, In no apparent distress, Oriented x3 HEENT: Atraumatic, Normocephalic, PERRLA, Mucous membr. moist/pink Neck: Supple, 2+ carotid pulse no bruit, JVD not distended Respiratory: Clear to auscultation bilaterally, Normal air movement Cardiovascular: No edema, Normal pulses, Regular rate/rhythm Capillary refill: <2 Seconds Gastrointestinal: Normal bowel sounds, Non-distended, Other Musculoskeletal: No clubbing, No swelling Integumentary: No rashes, No breakdown Neurological: Normal speech, Normal strength at 5/5 x4 extr, Sensation intact - Studies Laboratory Data (last 24 hrs) 03/27/23 03/27/23 03/27/23 15:20 15:20 15:20 WBC 11.20 H Hgb 10.7 L Hct 32.7 L Plt Count 293 PT 11.6 INR 1.05 Sodium 138 Potassium 4.1 BUN 34 H Creatinine 2.08 H Glucose 135 H Magnesium 2.6 H Total Bilirubin 0.6 AST 13 L ALT 44 Alkaline Phosphatase 90 Assessment and Plan - Plan Assessment plan Rectal bleeding acute sigmoid diverticulitis acute Acute on chronic kidney disease unknown baseline Microcytic anemia Rxx-utkuwfq-dsmfnrobz diabetes Reflux Hypertension Hyperlipidemia DVT prophylaxis Assessment plan Rectal bleeding sigmoid diverticulitis Dr. 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 He reports occasional epigastric pain, reflux that is worse at night. Acute on chronic kidney disease unknown baseline Dr. Coburn consulted, trend kidney function Gentle IV fluids, acute on chronic kidney injury, BUN 34 creatinine 2.08, Dr. Coburn consulted. Microcytic anemia Trend H&H Type and screen microcytic anemia 10.7, 32.7 Pcx-ynnqout-twjvajwow diabetes Sliding scale insulin, Accu-Cheks blood glucose 135 Reflux PPI, Hypertension Hyperlipidemia Resume appropriate home meds BNP 107, troponin 9.3, Diet n.p.o. after midnight Full code DVT SCDs Discharge Plan: Home Plan to discharge in: 48 Hours - Advance Directives Does patient have a Living Will: No Does patient have a Durable POA for Healthcare: No - Code Status/Comfort Care Code Status: Full Code Physician Review: Patient Assessed, Agree with Above Assessment and Plan Critical Care: No Time Spent Managing Pts Care (In Minutes): 50
[2023-03-27] MEDS ORDERED: NA CHLORIDE 0.9% 1,000 ML IV SCH (20:00)
[2023-03-27] MEDS ORDERED: NA CHLORIDE 0.9% 250 ML IV SCH (21:00)
[2023-03-27] MEDS: INSULIN -REGULAR HUMAN 50 UNIT/0.5 ML ML SQ SCH (21:00)
[2023-03-27] MEDS ORDERED: ONDANSETRON 4 MG/2 ML VIAL IV PRN (21:11)
[2023-03-27 21:38] VITALS: O2SAT 100
[2023-03-27 23:08] LABS: Hematocrit 27.8 % (39.6-49.0)
[2023-03-28 00:33] VITALS: BMI 23.3
[2023-03-28] MEDS: METRONIDAZOLE 500mg IVPB 500 MG/100 ML BAG IV SCH ×3 (00:54→17:12)
[2023-03-28] MEDS: PANTOPRAZOLE INJ 80 MG in NA CHLORIDE 0.9% 250 ML IV SCH ×2 (07:00→17:12)
[2023-03-28] MEDS: NA CHLORIDE 0.9% 1,000 ML IV SCH ×3 (07:11→17:11)
[2023-03-28 07:23] LABS: Absolute Lymphocytes (CBC) 1.6 K/uL (0.7-4.9); Hematocrit 27.8 % (39.6-49.0); Lymphocytes % 15.2 % (15.3-44.8); MCV 86.5 fL (80-100); MPV 7.9 fL (7.6-11.3); Platelets 237 thou/uL (152-406); RBC Red Blood Cell Count 3.21 M/uL (4.33-5.43)
[2023-03-28] MEDS: INSULIN -REGULAR HUMAN 50 UNIT/0.5 ML ML SQ SCH ×5 (07:30→21:00)
[2023-03-28 07:45] LABS: Bilirubin Total 0.6 mg/dL (0.2-1.0); Magnesium 2.4 mg/dL (1.6-2.4); Potassium 4.5 mEq/L (3.5-5.1); Protein, Total 6.6 g/dL (6.4-8.2)
[2023-03-28] MEDS ORDERED: GLUCAGON 1 MG/VIAL IM PRN (08:01)
[2023-03-28] MEDS: D10W 250 ML BAG IV PRN ×4 (08:34→16:25)
[2023-03-28] MEDS: CIPROFLOXACIN 400mg IV 400 MG/200 ML BAG IV SCH (10:11)
--- NOTE | 2023-03-28 11:43 | P.CNS ---
Date of Consult: 03/28/23 Reason for Consult: ABISAI/ CKD Requesting Physician: gildardo lomax Chief Complaint: Rectal Bleeding History of Present Illness: 77-year-old male with a past medical history of diabetes, eye-nznkpxg-oyzfvvooa diabetes mellitus, hyperlipidemia, hypertension presents to the emergency room for rectal bleeding. He reports rectal bleeding started 2 days ago. He reports bright red bleeding 2-3 stools per day x2 days. He reports occasional epigastric pain, reflux that is worse at night. He reports alcohol use 2-3 drinks monthly. No reported tobacco use, denies nausea vomiting, shortness of breath, chest pain. Plan to admit inpatient for GI bleed, acute kidney failure,. Dr. Arias has been notified, plan to do EGD in the a.m. Keep patient n.p.o. after midnight, ED evaluation Rate is 80 beats/min. Rhythm is regular, Normal Sinus Rhythm with Left bundle branch block, Right bundle branch block. [place] interval is normal at 172 msec. QRS interval is normal at 134 msec. QT interval is normal at [address] changes noted. Laboratory evaluation WBCs 11.20, early left shift 12.7, microcytic anemia 10.7, 32.7, acute on chronic kidney injury, BUN 34 creatinine 2.08, Dr. Coburn consulted. 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 16:07 The patient presents to the emergency department with bleeding from the rectum/anus, sb4 that is moderate. Onset: The symptoms/episode began/occurred 2 day(s) ago. Context: the patient has no known special context relating to the rectal area complaint(s). 19:32 Modifying factors: The symptoms are alleviated by nothing, The symptoms are aggravated sb4 by nothing. Associate signs and symptoms: Pertinent negatives: abdominal pain, diarrhea, lower GI bleeding, vomiting. The patient has not experienced similar symptoms in the past. The patient has not recently seen a physician. No NSAIDs. No difficulty with urination. Nocturia X2. Allergies No Known Drug Allergies Allergy (Verified 05/03/18 16:49) Unknown Home medications list reviewed: Yes Home Medications: Glipizide [Glipizide ER] 10 mg PO DAILY 05/03/18 Metformin HCl [Glucophage] 500 mg PO BID 05/03/18 Pravastatin Sodium 40 mg PO DAILY 05/03/18 Dapagliflozin Propanediol [Farxiga] 1 tab PO DAILY 03/28/23 Semaglutide [Ozempic] 0.5 mg SQ UD 03/28/23 - Past Medical/Surgical History Diabetic: Yes -: HTN -: HLD -: DM II -: CKD III (Dr. Coburn/ Dr. 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 - Social History Smoking Status: Unknown if ever smoked Alcohol use: Yes CD- Drugs: No Caffeine use: Yes Place of Residence: Home Review of Systems 10-point ROS is otherwise unremarkable Physical Examination Temp Pulse Resp BP Pulse Ox 97 F 83 18 160/79 H 98 03/28/23 08:00 03/28/23 08:00 03/28/23 08:00 03/28/23 08:00 03/28/23 08:00 General: In no apparent distress, Oriented x3, Cooperative HEENT: Atraumatic Neck: Supple Respiratory: Clear to auscultation bilaterally Cardiovascular: No edema, Regular rate/rhythm Gastrointestinal: Soft and benign, Non-distended Musculoskeletal: No clubbing, No contractures Integumentary: No rashes, No cyanosis Neurological: Normal speech Laboratory Data (last 24 hrs) 03/27/23 03/27/23 03/27/23 15:20 15:20 15:20 WBC 11.20 H Hgb 10.7 L Hct 32.7 L Plt Count 293 PT 11.6 INR 1.05 Sodium 138 Potassium 4.1 BUN 34 H Creatinine 2.08 H Glucose 135 H Magnesium 2.6 H Total Bilirubin 0.6 AST 13 L ALT 44 Alkaline Phosphatase 90 Imagings Data: EXAM DESCRIPTION: CT - Abdomen Pelvis Wo Contrast - 03/27/2023 5:29 pm CLINICAL HISTORY: Abdominal pain GI bleed COMPARISON: 2019 TECHNIQUE: Computed axial tomography of the abdomen and pelvis was obtained. IV and oral contrast were not requested. All CT scans are performed using dose optimization technique as appropriate and may include automated exposure control or mA/KV adjustment according to patient size. FINDINGS: The evaluation of solid organs, vessels and bowel is limited secondary to the lack of contrast administration. Liver spleen, pancreas, left adrenal and kidneys grossly normal Small right adrenal myelolipoma Small duodenal diverticulum Diverticula stem from the colon. Mild stranding adjacent to the sigmoid colon consistent with a mild diverticulitis. Postsurgical changes involve the bowel. 3.2 centimeter infarct has developed since the prior exam within the omentum near midline at the level the kidneys. There is not significant stranding so this probably is relatively old. 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 The heart is normal size IMPRESSION: No acute abnormalities displayed Conclusions/Impression: Stage I ABISAI due to hypovolemia CKD III -No NSAIDs -IVF bolus prn HTN with CKD -Hold antihypertensives at this time DM II -RISS -Hold Metformin Anemia in chronic illness GI Bleed Sigmoid diverticulitis -Follow up with Dr. Gillette -Continue Abx CKD MBD -Start Ergo Hospitalist and ER notes reviewed Thank you kindly for the consultation
[2023-03-28] MEDS ORDERED: NA CHLORIDE 0.9% 1,000 ML ONE (14:18)
[2023-03-28] MEDS ORDERED: propofoL 200 MG/20 ML VIAL IV ONE (15:55)
--- NOTE | 2023-03-28 16:09 | P.PN ---
Subjective Date of Service: 03/28/23 Chief Complaint: Rectal Bleeding Patient denies any complaint today. He reports no BM or rectal bleeding today. Physical Examination - Vital Signs Temperature: 97 F Blood Pressure: 160/79 Pulse: 83 Respirations: 18 Pulse Ox (%): 98 - Studies Laboratory Data (last 24 hrs) 03/27/23 15:20 WBC 11.20 H Hgb 10.7 L Hct 32.7 L Plt Count 293 Assessment And Plan - Plan Physical Exam General: Alert, In no apparent distress. HEENT: Anicteric sclera. Respiratory: Clear to auscultation bilaterally, Normal air movement Cardiovascular: No edema, Normal pulses, Regular rate/rhythm Gastrointestinal: Normal bowel sounds, Non-distended, Other Musculoskeletal: No swelling Integumentary: No rashes, No breakdown Assessment plan Acute lower GI bleed. Sigmoid diverticulitis Acute on chronic kidney disease unknown baseline Microcytic anemia Psj-suwprxr-ezrgfrvoc diabetes Reflux Hypertension Hyperlipidemia DVT prophylaxis Assessment plan Rectal bleeding sigmoid diverticulitis Dr. Arias consulted. Patient is scheduled for EGD today. IV proton, gentle IV fluids, Empiric Flagyl Cipro Acute on chronic kidney disease unknown baseline Serum creatinine is trending down. Nephrology Dr. Coburn Consulted Hydrate with IV fluid Monitor renal function. Acute blood loss anemia Trend H&H Type and screen Transfuse as needed for hemoglobin less than 7. Mof-ojiqyec-mpbwrqrif diabetes Sliding scale insulin, Accu-Cheks Hypertension Hyperlipidemia Resume appropriate home meds when diet is resumed. Full code DVT SCDs
[2023-03-28] MEDS ORDERED: LIDOCAINE 1% MPF 5 ML VIAL ONE (16:43)
[2023-03-28] MEDS: FLUCONAZOLE 100 MG TAB PO SCH (17:31)
[2023-03-28] MEDS ORDERED: DRISDOL (VITAMIN D=ERGOCALCIFEROL) 50000 UNIT CAP PO SCH (19:00)
[2023-03-28] MEDS: DOCUSATE NA 100 MG CAP PO SCH (20:28)
[2023-03-29] MEDS: METRONIDAZOLE 500mg IVPB 500 MG/100 ML BAG IV SCH ×2 (01:00→09:00)
[2023-03-29] MEDS: PANTOPRAZOLE INJ 80 MG in NA CHLORIDE 0.9% 250 ML IV SCH (03:50)
[2023-03-29 04:31] LABS: Absolute Lymphocytes (CBC) 1.7 K/uL (0.7-4.9); Hematocrit 27.7 % (39.6-49.0); Lymphocytes % 19.8 % (15.3-44.8); MCV 86.5 fL (80-100); MPV 8.3 fL (7.6-11.3); Platelets 246 thou/uL (152-406)
[2023-03-29 04:51] LABS: Bilirubin Total 0.5 mg/dL (0.2-1.0); Magnesium 2.1 mg/dL (1.6-2.4); Phosphorus 3.2 mg/dL (2.5-4.9); Potassium 4.4 mEq/L (3.5-5.1); Protein, Total 6.5 g/dL (6.4-8.2); Uric Acid 5.9 mg/dL (3.5-7.2)
[2023-03-29] MEDS: INSULIN -REGULAR HUMAN 50 UNIT/0.5 ML ML SQ SCH ×2 (07:30→11:30)
[2023-03-29] MEDS: DOCUSATE NA 100 MG CAP PO SCH (08:25)
[2023-03-29] MEDS: FLUCONAZOLE 100 MG TAB PO SCH (08:25)
[2023-03-29] MEDS: CIPROFLOXACIN 400mg IV 400 MG/200 ML BAG IV SCH (08:26)
[2023-03-29 10:33] VITALS: BP 142/69; TEMP 97.1
--- NOTE | 2023-03-29 12:07 | P.DS ---
Admission Date: 03/27/23 Discharge Date: 03/29/23 Disposition: ROUTINE DISCHARGE Discharge Condition: FAIR Reason for Admission: Rectal Bleeding Brief History of Present Illness: 77-year-old male with a past medical history of diabetes, gfa-vibtyow-oskuauzti diabetes mellitus, hyperlipidemia, hypertension presents to the emergency room for rectal bleeding. He reports rectal bleeding started 2 days ago. He reported bright red bleeding 2-3 stools per day x2 days. He reported epigastric pain. He reported alcohol use 2-3 drinks monthly. No reported tobacco use, denies nausea vomiting, shortness of breath, chest pain. Laboratory evaluation WBCs 11.20, early left shift 12.7, anemia 10.7, 32.7, acute on chronic kidney injury, BUN 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 Patient was hospitalized for further management. Hospital Course: Assessment plan Acute lower GI bleed. Sigmoid diverticulitis Acute on chronic kidney disease unknown baseline Microcytic anemia Mov-rsxxsrl-enlqolgcg diabetes Reflux Hypertension Hyperlipidemia Assessment plan Rectal bleeding sigmoid diverticulitis Dr. Arias consulted. EGD done showed esophageal stricture, esophagitis with numerous white-yellow patches suggestive of esophageal candidiasis, esophageal ulcer and gastritis. Patient started on Diflucan. He was also treated with IV Protonix. He is transition to oral Protonix and Diflucan for discharge. No more active bleeding during the hospital stay. Patient will follow-up with Dr. Gillette as an outpatient for colonoscopy. Patient also placed on ciprofloxacin and Flagyl for diverticulitis. Acute on chronic kidney disease unknown baseline Serum creatinine trended down with IV fluid Follow-up with Dr. Tavarez as outpatient Acute blood loss anemia Hemoglobin was fairly stable. Patient did not require blood transfusion during the hospital stay. Mpy-hkaikac-edhtaxbsx diabetes Managed sliding scale insulin, Accu-Cheks. Home diabetes regimen resumed on discharge Hypertension Hyperlipidemia Home meds resumed on discharge. Full code Vital Signs/Physical Exam: Temp Pulse Resp BP Pulse Ox 97.1 F 81 18 142/69 H 99 03/29/23 08:00 03/29/23 08:00 03/29/23 08:00 03/29/23 08:00 03/29/23 08:00 General: Alert, In no apparent distress, Oriented x3 HEENT: Mucous membr. moist/pink Neck: Supple, JVD not distended Respiratory: Clear to auscultation bilaterally, Normal air movement Cardiovascular: No edema, Regular rate/rhythm, Normal S1 S2 Gastrointestinal: Normal bowel sounds, Soft and benign, Non-distended, No tenderness Musculoskeletal: No swelling Integumentary: No rashes, No cyanosis Neurological: Normal strength at 5/5 x4 extr Laboratory Data at Discharge: WBC 8.80 thou/uL (4.3-10.9) 03/29/23 04:10 Hgb 9.3 g/dL (13.6-17.9) L 03/29/23 04:10 Hct 27.7 % (39.6-49.0) L 03/29/23 04:10 Plt Count 246 thou/uL (152-406) 03/29/23 04:10 PT 11.6 SECONDS (9.5-12.5) 03/27/23 15:20 INR 1.05 03/27/23 15:20 Sodium 141 mEq/L (136-145) 03/29/23 04:10 Potassium 4.4 mEq/L (3.5-5.1) 03/29/23 04:10 BUN 17 mg/dL (7-18) 03/29/23 04:10 Creatinine 1.77 mg/dL (0.70-1.30) H 03/29/23 04:10 Glucose 80 mg/dL (74-106) 03/29/23 04:10 Uric Acid 5.9 mg/dL (3.5-7.2) 03/29/23 04:10 Phosphorus 3.2 mg/dL (2.5-4.9) 03/29/23 04:10 Magnesium 2.1 mg/dL (1.6-2.4) 03/29/23 04:10 Total Bilirubin 0.5 mg/dL (0.2-1.0) 03/29/23 04:10 AST 13 U/L (15-37) L 03/29/23 04:10 ALT 30 U/L (16-61) 03/29/23 04:10 Alkaline Phosphatase 63 U/L (45-117) 03/29/23 04:10 Home Medications: Glipizide [Glipizide ER] 10 mg PO DAILY 10/15/18 Metformin HCl [Glucophage] 500 mg PO BID 05/03/18 Pravastatin Sodium 40 mg PO DAILY 05/03/18 Dapagliflozin Propanediol [Farxiga] 1 tab PO DAILY 03/28/23 Semaglutide [Ozempic] 0.5 mg SQ UD 03/28/23 Ciprofloxacin HCl [Cipro] 500 mg PO BID #8 tab 03/29/23 Fluconazole [Diflucan] 200 mg PO DAILY #14 tab 03/29/23 Pantoprazole [Protonix Tab] 40 mg PO BID #60 tab 03/29/23 Vitamin D [Drisdol*] 50,000 unit PO Q7D #4 cap 03/29/23 metroNIDAZOLE [Flagyl] 500 mg PO Q8H #12 tab 03/29/23 New Medications: Ciprofloxacin HCl [Cipro] 500 mg PO BID #8 tab Fluconazole [Diflucan] 200 mg PO DAILY #14 tab Vitamin D [Drisdol*] 50,000 unit PO Q7D #4 cap metroNIDAZOLE [Flagyl] 500 mg PO Q8H #12 tab Pantoprazole [Protonix Tab] 40 mg PO BID #60 tab Physician Discharge Instructions: Soft diet for the next 3 days and then progress to solid diet. You need to follow-up with Dr. Gillette regarding your gastric biopsy results and also to arrange for colonoscopy. Diet: AHA Activity: Ad evaristo Followup: Jose Gerber MD [Primary Care Provider] - 1-2 Weeks Davide Gillette MD [ASSOCIATE-ACTIVE - CAN ADMIT] - 1-2 Weeks Time spent managing pt's care (in minutes): 33
[2023-03-29 13:04] LABS: Specific Gravity 1.006 (1.005-1.030); Urine Bacteria None Seen /HPF (<20); Urine Bilirubin NEGATIVE (Negative); Urine Blood Negative (Negative); Urine Clarity Clear (Clear); Urine Color Colorless (Yellow); Urine Glucose 2+ (Negative); Urine Protein NEGATIVE (Negative); Urine RBC <5 /HPF (None Seen); Urine Urobilinogen Normal (Normal)
[2023-03-29 13:33] LABS: UR MICROALBUMIN 2.4 mg/dL (< 1.9); Urine Protein/Creatinine Ratio 0.41 ratio (<0.15)
--- NOTE | 2023-03-29 19:47 | P.PN ---
Date of Service: 03/29/23 Vital Signs Temp Pulse Resp BP Pulse Ox 97.1 F 81 18 142/69 H 99 03/29/23 12:00 03/29/23 12:00 03/29/23 12:00 03/29/23 12:00 03/29/23 12:00 Assessment/ Plan: Nephrology No dyspnea No chest pain No acute events overnight Vitals, medications, blood work and imaging reviewed in the chart. General: In no apparent distress, Oriented x3, Cooperative HEENT: Atraumatic Neck: Supple Respiratory: Clear to auscultation bilaterally Cardiovascular: No edema, Regular rate/rhythm Gastrointestinal: Soft and benign, Non-distended Musculoskeletal: No clubbing, No contractures Integumentary: No rashes, No cyanosis Neurological: Normal speech Laboratory Data (last 24 hrs) 03/27/23 03/27/23 03/27/23 15:20 15:20 15:20 WBC 11.20 H Hgb 10.7 L Hct 32.7 L Plt Count 293 PT 11.6 INR 1.05 Sodium 138 Potassium 4.1 BUN 34 H Creatinine 2.08 H Glucose 135 H Magnesium 2.6 H Total Bilirubin 0.6 AST 13 L ALT 44 Alkaline Phosphatase 90 Imagings Data: EXAM DESCRIPTION: CT - Abdomen Pelvis Wo Contrast - 03/27/2023 5:29 pm CLINICAL HISTORY: Abdominal pain GI bleed COMPARISON: 2019 TECHNIQUE: Computed axial tomography of the abdomen and pelvis was obtained. IV and oral contrast were not requested. All CT scans are performed using dose optimization technique as appropriate and may include automated exposure control or mA/KV adjustment according to patient size. FINDINGS: The evaluation of solid organs, vessels and bowel is limited secondary to the lack of contrast administration. Liver spleen, pancreas, left adrenal and kidneys grossly normal Small right adrenal myelolipoma Small duodenal diverticulum Diverticula stem from the colon. Mild stranding adjacent to the sigmoid colon consistent with a mild diverticulitis. Postsurgical changes involve the bowel. 3.2 centimeter infarct has developed since the prior exam within the omentum near midline at the level the kidneys. There is not significant stranding so this probably is relatively old. 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 The heart is normal size IMPRESSION: No acute abnormalities displayed Conclusions/Impression: Stage I ABISAI due to hypovolemia CKD III -No NSAIDs -IVF bolus prn HTN with CKD -Hold antihypertensives at this time DM II -RISS -Hold Metformin Anemia in chronic illness GI Bleed/ Esophageal Ulcer Sigmoid diverticulitis -Follow up with Dr. Gillette -Continue Abx CKD MBD -Continue Ergo Hospitalist and GI notes reviewed
--- NOTE | 2023-03-30 17:13 | EKG ---
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
== END 2023-03-29 14:17 | disposition home or self-care (01) | DRG 377 ==
LOC: ER 14:41 → ERHOLD 18:50 → 4TH 20:27
PROVIDERS: ADMIT Internal Medicine; ATTEND Internal Medicine
PROC: 0DB78ZX Excision of Stomach, Pylorus, Via Natural or Artificial Opening Endoscopic, Diagnostic (ICD-10-PCS; 2023-03-28)
PROC: 0DB68ZX Excision of Stomach, Via Natural or Artificial Opening Endoscopic, Diagnostic (ICD-10-PCS; principal; 2023-03-28 14:45)
DX: K57.33 Diverticulitis of large intestine without perforation or abscess with bleeding (principal); K21.01 Gastro-esophageal reflux disease with esophagitis, with bleeding; N17.9 Acute kidney failure, unspecified; I45.2 Bifascicular block; D62 Acute posthemorrhagic anemia; K22.11 Ulcer of esophagus with bleeding; K29.71 Gastritis, unspecified, with bleeding; E78.00 Pure hypercholesterolemia, unspecified; K22.2 Esophageal obstruction; I12.9 Hypertensive chronic kidney disease with stage 1 through stage 4 chronic kidney disease, or unspecified chronic kidney disease; N18.30 Chronic kidney disease, stage 3 unspecified; E11.22 Type 2 diabetes mellitus with diabetic chronic kidney disease; D63.1 Anemia in chronic kidney disease; D50.9 Iron deficiency anemia, unspecified; Z90.49 Acquired absence of other specified parts of digestive tract; Z79.84 Long term (current) use of oral hypoglycemic drugs; Z79.899 Other long term (current) drug therapy
CPT/HCPCS: 36415; 71045; 74176; 80048; 80053; 80076; 81001; 82043; 82570; 82947; 83036; 83605; 83735; 83880; 84100; 84156; 84484; 84550; 85014; 85018; 85025; 85610; 86850; 86900; 86901; 86920; 88305; 88312; 93005; 99285; C9113; J0744; J2001; J2704; J7030; J7050